=== PATIENT | female | born 1960 | race American Indian/Alaskan Native ===

== ENCOUNTER 2017-10-03 14:57 | Emergency (ER) | payer OTHER ==
[2017-10-03 15:38] LABS: Basophils # (Auto) 0.1 K/mm3 (0.0-0.1); Basophils % (Auto) 0.6 % (0.0-1.8); Eosinophils # (Auto) 0.2 K/mm3 (0.0-0.4); Eosinophils % (Auto) 2.1 % (0.0-4.3); Hematocrit 39.2 % (30.3-42.9); Hemoglobin 12.8 gm/dl (10.1-14.3); Lymphocytes # (Auto) 1.8 K/mm3 (1.2-5.4); Lymphocytes % (Auto) 18.1 % (13.4-35.0); Mean Corpuscular HGB Conc 33 % (30-34); Mean Corpuscular Hemoglobin 27 pg (28-32); Mean Corpuscular Volume 82 fl (79-97); Monocytes # (Auto) 0.7 K/mm3 (0.0-0.8); Monocytes % (Auto) 7.1 % (0.0-7.3); Platelet Count 368 K/mm3 (140-440); Red Cell Distribution Width 14.4 % (13.2-15.2)
--- NOTE | 2017-10-03 16:00 | XRay Report ---
FINAL REPORT PROCEDURE: XR CHEST ROUTINE 2V TECHNIQUE: PA and lateral chest radiographs were obtained. CPT 70335 HISTORY: Shortness of breath COMPARISON: No prior studies are available for comparison. FINDINGS: Heart: Normal. Mediastinum/Vessels: Normal. Lungs/Pleural space: Normal. Bony thorax: No acute osseous abnormality. Other: IMPRESSION: Normal examination.
[2017-10-03 16:30] LABS: BUN/Creatinine Ratio 18; Blood Urea Nitrogen 11 mg/dL (7-17); Calcium 9.3 mg/dL (8.4-10.2)
[2017-10-03] MEDS ORDERED: APRESOLINE IV ONE (22:28)
[2017-10-03 23:10] VITALS: BP 129/72
--- NOTE | 2017-10-03 23:24 | Emergency Department Report ---
ED General Adult HPI - General Chief complaint: High BP Stated complaint: BP HIGH Time Seen by Provider: 10/03/17 22:26 Source: patient Mode of arrival: Ambulatory Limitations: No Limitations - History of Present Illness Initial comments: 57 yo female who comes in today due to an elevated blood pressure. Her blood pressure on check in the ED was 205/110. She states that her blood pressure regimen was recently changed by her provider. Denies any chest pain, shortness of breath, nausea, vomiting, fever, or chills. -: This evening Radiation: non-radiation Severity scale (0 -10): 0 Consistency: now resolved Improves with: medication Worsens with: none Associated Symptoms: headaches Treatments Prior to Arrival: none - Related Data Allergies Allergy/AdvReac Type Severity Reaction Status Date / Time erythromycin base Allergy Itching Unverified 08/18/16 10:39 latex Allergy Itching Verified 10/03/17 15:09 pseudoephedrine HCl Allergy Itching Unverified 08/18/16 10:40 [From Actifed] tramadol Allergy Itching Unverified 08/18/16 10:39 triprolidine HCl Allergy Itching Unverified 08/18/16 10:40 [From Actifed] ED Review of Systems ROS: Stated complaint: BP HIGH Other details as noted in HPI Constitutional: denies: chills, fever Eyes: denies: eye pain, eye discharge, vision change ENT: denies: ear pain, throat pain Respiratory: denies: cough, shortness of breath, wheezing Cardiovascular: denies: chest pain, palpitations Endocrine: no symptoms reported Gastrointestinal: denies: abdominal pain, nausea, diarrhea Genitourinary: denies: urgency, dysuria, discharge Musculoskeletal: denies: back pain, joint swelling, arthralgia Skin: denies: rash, lesions Neurological: headache Psychiatric: denies: anxiety, depression Hematological/Lymphatic: other (bilateral lower extremity edema ) ED Past Medical Hx - Past Medical History Previous Medical History?: Yes Hx Hypertension: Yes Hx Diabetes: Yes Hx Asthma: Yes Additional medical history: Glaucoma - Surgical History Past Surgical History?: No Additional Surgical History: Right eye surgery - Social History Smoking Status: Former Smoker Substance Use Type: Non Opiate Pain, Prescribed, Other ED Physical Exam - General Limitations: No Limitations General appearance: alert, in no apparent distress - Head Head exam: Present: atraumatic, normocephalic - Eye Eye exam: Present: normal appearance - ENT ENT exam: Present: mucous membranes moist - Neck Neck exam: Present: normal inspection - Respiratory Respiratory exam: Present: normal lung sounds bilaterally. Absent: respiratory distress - Cardiovascular Cardiovascular Exam: Present: regular rate, normal rhythm. Absent: systolic murmur, diastolic murmur, rubs, gallop - Extremities Exam Extremities exam: Present: pedal edema (bilaterally ) - Back Exam Back exam: Present: normal inspection - Neurological Exam Neurological exam: Present: alert, oriented X3 - Psychiatric Psychiatric exam: Present: normal affect, normal mood - Skin Skin exam: Present: warm, dry, intact, normal color. Absent: rash ED Course Vital Signs 10/03/17 10/03/17 10/03/17 15:04 17:26 17:30 Temperature 98.6 F Pulse Rate 97 H 72 78 Respiratory 18 14 11 L Rate Blood Pressure 195/103 160/95 O2 Sat by Pulse 97 86 Oximetry 10/03/17 10/03/17 10/03/17 17:45 18:00 18:16 Temperature Pulse Rate 73 76 91 H Respiratory 19 19 16 Rate Blood Pressure 156/97 156/97 196/110 O2 Sat by Pulse 100 Oximetry 10/03/17 10/03/17 10/03/17 18:32 20:18 21:25 Temperature 98.8 F Pulse Rate 92 H 90 Respiratory 16 13 Rate Blood Pressure 151/101 204/109 151/101 O2 Sat by Pulse 88 99 100 Oximetry 10/03/17 10/03/17 10/03/17 21:30 21:38 21:46 Temperature Pulse Rate 88 84 Respiratory 15 20 13 Rate Blood Pressure 205/110 205/110 O2 Sat by Pulse 99 100 100 Oximetry 10/03/17 10/03/17 10/03/17 21:48 22:00 22:16 Temperature Pulse Rate 90 88 91 H Respiratory 15 13 Rate Blood Pressure 182/97 205/110 O2 Sat by Pulse 100 100 Oximetry 10/03/17 10/03/17 10/03/17 22:30 22:46 23:00 Temperature Pulse Rate 88 78 87 Respiratory 13 17 22 Rate Blood Pressure 166/94 182/97 129/72 O2 Sat by Pulse 97 100 100 Oximetry - Reevaluation(s) Reevaluation #1: 01/06/18 23:24 Blood pressure improved with hydralazine. Blood pressure 129/72. Home today. She was instructed to follow up with her provider to have her blood pressure regimen modified. ED Medical Decision Making - Lab Data Result diagrams: 10/03/17 15:22 10/03/17 15:22 - EKG Data -: EKG Interpreted by Me EKG shows normal: sinus rhythm Rate: normal - EKG Data When compared to previous EKG there are: previous EKG unavailable Interpretation: no acute changes, nonspecific ST-T wave stalin - Radiology Data Radiology results: report reviewed (chest radiograph unremarkable ) No acute pathology. - Medical Decision Making uncontrolled hypertension medication non-compliance - Differential Diagnosis uncontrolled hypertension, medication non-compliance Critical care attestation.: If time is entered above; I have spent that time in minutes in the direct care of this critically ill patient, excluding procedure time. ED Disposition Clinical Impression: Uncontrolled hypertension, Noncompliance with medication regimen Disposition: TO HOME OR SELFCARE Is pt being admited?: No Does the pt Need Aspirin: No Condition: Stable Instructions: Hypertension (ED) Additional Instructions: Please follow up with your provider on Thursday to have your blood pressure medications adjusted. Return to the ED for worsening headache, chest pain, neck , jaw, or arm pain in addition to shortness of breath. Referrals: GUZMAN ANDRE MD [Primary Care Provider] - 3-5 Days Time of Disposition: 23:31
== END 2017-10-04 01:25 | disposition home or self-care (01) ==
LOC: ED 14:57
DX: I10 Essential (primary) hypertension (principal); E11.9 Type 2 diabetes mellitus without complications; J45.909 Unspecified asthma, uncomplicated; H40.9 Unspecified glaucoma; Z91.14 Patient's other noncompliance with medication regimen; Z88.1 Allergy status to other antibiotic agents; Z88.6 Allergy status to analgesic agent; Z88.8 Allergy status to other drugs, medicaments and biological substances; Z91.040 Latex allergy status; Z87.891 Personal history of nicotine dependence
CPT/HCPCS: 36415; 71046; 80048; 84484; 85025; 93005; 93010; 96374; 99284; J0360

== ENCOUNTER 2018-10-02 14:13 | Inpatient (IN) | payer MEDICARE, OTHER ==
[2018-10-02 15:48] LABS: Hematocrit 38.3 % (30.3-42.9); Hemoglobin 12.5 gm/dl (10.1-14.3); Mean Corpuscular HGB Conc 33 % (30-34); Mean Corpuscular Volume 84 fl (79-97); Platelet Count 401 K/mm3 (140-440); Red Blood Count 4.55 M/mm3 (3.65-5.03)
[2018-10-02 15:50] LABS: Lymphocytes % (Auto) 16.1 % (13.4-35.0); Monocytes % (Auto) 6.8 % (0.0-7.3)
[2018-10-02 15:51] LABS: Basophils % (Auto) 0.7 % (0.0-1.8); Eosinophils % (Auto) 0.5 % (0.0-4.3); Lymphocytes # (Auto) 2.1 K/mm3 (1.2-5.4); Monocytes # (Auto) 0.9 K/mm3 (0.0-0.8)
[2018-10-02 15:52] LABS: Alanine Aminotransferase 18 units/L (7-56); Albumin 4.1 g/dL (3.9-5); BUN/Creatinine Ratio 26; Basophils # (Auto) 0.1 K/mm3 (0.0-0.1); Blood Urea Nitrogen 21 mg/dL (7-17); Calcium 10.2 mg/dL (8.4-10.2); Eosinophils # (Auto) 0.1 K/mm3 (0.0-0.4); Hemolysis Index 77; INR 1.04 (0.87-1.13); Partial Thromboplastin Time 20.5 Sec. (24.2-36.6)
[2018-10-02 15:55] LABS: Bilirubin,Urine NEG (Negative); Blood,Urine SM (Negative); Color,Urine Yellow (Yellow); Mucus,Urine FEW /HPF; Urobilinogen,Urine < 2.0 mg/dL (<2.0)
--- NOTE | 2018-10-02 15:57 | Cat Scan Report ---
FINAL REPORT EXAM: CT HEAD/BRAIN WO CON HISTORY: Altered Mental Status TECHNIQUE: CT of the Head without IV contrast. PRIORS: None currently available. FINDINGS: 7.2 mm ill-defined area decreased attenuation in the anterior left thalamus suggests acute/subacute i schemia. There is no hemorrhage. There is no midline shift. There is no hydrocephalus. There is no mass. Age appropriate weathers-white matter attenuation is noted. There is no calvarial fracture. The temporal bones demonstrate aerated mastoid air cells. The middle ears appear unremarkable. Paranasal sinuses are unremarkable. Globes are intact. IMPRESSION: Acute/subacute focal ischemia in the left thalamus. Correlation with MRI may be helpful if clinically indicated.
[2018-10-02 16:00] LABS: Protein,Urine >500 mg/dL (Negative)
--- NOTE | 2018-10-02 16:29 | XRay Report ---
FINAL REPORT EXAM: XR CHEST 1V AP HISTORY: Altered Mental Status TECHNIQUE: Frontal chest x-ray. PRIORS: Chest x-ray October 03, 2017. FINDINGS: Cardiac silhouette is within normal limits. There is no effusion. There is no pneumothorax. There is no consolidation. There are no suspicious osseous lesions. IMPRESSION: No acute cardiopulmonary findings.
[2018-10-02] MEDS ORDERED: HumuLIN R IV ONE (16:35)
[2018-10-02] MEDS ORDERED: NACL 0.9% 1000 ML 1,000 ML IV ONE (16:35)
[2018-10-02] MEDS ORDERED: ASPIRIN PO ONE (16:53)
[2018-10-02] MEDS ORDERED: NORMODYNE IV ONE (16:56)
--- NOTE | 2018-10-02 17:41 | Emergency Department Report ---
ED Altered Mental Status HPI - General Chief Complaint: High BP Stated Complaint: AMS Time Seen by Provider: 10/02/18 16:33 Source: family, EMS Mode of arrival: Stretcher Limitations: No Limitations - History of Present Illness Initial Comments: 58-year-old female past medical history diabetes (on insulin), hypertension, asthma, and glaucoma with recent right eye surgery presents to the hospital with complains of alteration in mental status since yesterday. Family does not think that patient has taken her insulin doses last night or today. She typically is able to medicate herself however, they suspect that she has not done so due to her alteration in mental status. Blood pressure is also elevated upon arrival and they're unsure if patient has been taking her blood pressure medication. Patient is alert and oriented to self only. She does not know why she is here and answers "I don't know" all other orientation questions. She follows co mmands and denies pain. It is unable to give any history of present illness therefore it was obtained primarily from her daughter and at the bedside. She is supposed to take Levemir 90 units daily at bedtime and Novolin R insulin twice a day at unknown dose. Family reports the patient has some mild URI symptoms that are improving. No fever. PMD: Dr. Sinan Coles - Related Data Home Medications Medication Instructions Recorded Confirmed Last Taken Insulin Detemir [Levemir VIAL] 90 unit SQ QHS 10/02/18 10/02/18 Unknown Allergies Allergy/AdvReac Type Severity Reaction Status Date / Time latex Allergy Severe Itching Verified 10/02/18 21:23 ED Review of Systems ROS: Stated complaint: AMS Other details as noted in HPI Comment: All other systems reviewed and negative ED Past Medical Hx - Past Medical History Hx Hypertension: Yes Hx Diabetes: Yes Hx Asthma: Yes Additional medical history: Glaucoma - Surgical History Additional Surgical History: Right eye surgery - Social History Smoking Status: Never Smoker Substance Use Type: None - Medications Home Medications: Home Medications Medication Instructions Recorded Confirmed Last Taken Type Insulin Detemir [Levemir VIAL] 90 unit SQ QHS 10/02/18 10/02/18 Unknown History ED Physical Exam - General Limitations: No Limitations - Other Other exam information: General: No limitations, patient is alert in no acute distress Head exam: Atraumatic, normocephalic Eyes exam: Normal appearance, pupils equal reactive to light, extraocular movements intact ENT: Moist mucous membrane Neck exam: Normal inspection, full range of motion, no meningismus nontender Respiratory exam: Clear to auscultation bilateral, no wheezes, rales, crackles Cardiovascular: Mild tachycardic regular rhythm Abdomen: Soft, nondistended, and nontender, with normal bowel sounds, no rebound, or guarding Extremity: Full range of motion normal inspection no deformity Back: Normal Inspection, full range of motion, no tenderness Neurologic: Alert, oriented x1, cranial nerves intact, no motor or sensory def icit Psychiatric: normal affect, normal mood Skin: Warm, dry, intact - Assessment Assessment Interval: Baseline - Level of Consciousness 1a. Level of Consciousness: alert/keenly responsive - LOC Questions 1b. LOC Questions: answers no questions correctly - LOC Command 1c. LOC Commands: performs tasks correctly - Best Gaze 2. Best Gaze: normal - Visual 3. Visual: no visual loss - Facial Palsy 4. Facial Palsy: normal symmetrical movement - Motor Arm 5b. Motor Arm Right: no drift 5a. Motor Arm Left: no drift - Motor Leg 6b. Motor Leg Right: no drift 6a. Motor Leg Left: no drift - Limb Ataxia 7. Limb Ataxia: absent - Sensory 8. Sensory: normal - Best Language 9. Best Language: no aphasia - Dysarthria 10. Dysarthria: normal - Extinction and Inattention 11. Extinction/Inattention: no abnormality - Scoring Total Score: 2 Stroke Severity: Minor Stroke ED Course Vital Signs 10/02/18 10/02/18 10/02/18 14:36 14:46 16:10 Temperature 97.8 F Pulse Rate 108 H Respiratory 12 Rate Blood Pressure 215/111 197/104 O2 Sat by Pulse 99 99 Oximetry 10/02/18 10/02/18 10/02/18 16:30 17:01 17:16 Temperature Pulse Rate 104 H Respiratory 11 L Rate Blood Pressure 189/96 223/133 202/117 O2 Sat by Pulse 99 Oximetry 10/02/18 10/02/18 10/02/18 17:30 17:46 18:00 Temperature Pulse Rate 98 H 99 H Respiratory 17 17 Rate Blood Pressure 210/115 205/105 197/97 O2 Sat by Pulse 97 98 Oximetry 10/02/18 10/02/18 10/02/18 18:16 18:30 18:46 Temperature Pulse Rate 102 H 98 H 105 H Respiratory 19 12 18 Rate Blood Pressure 197/97 159/69 159/69 O2 Sat by Pulse 99 98 96 Oximetry 10/02/18 10/02/18 10/02/18 19:00 19:56 20:00 Temperature Pulse Rate 105 H 104 H 107 H Respiratory 16 16 10 L Rate Blood Pressure 192/98 190/95 190/95 O2 Sat by Pulse 98 Oximetry 10/02/18 10/02/18 10/02/18 20:16 20:30 20:46 Temperature Pulse Rate 108 H 106 H 106 H Respiratory 21 18 20 Rate Blood Pressure 190/95 192/98 192/98 O2 Sat by Pulse Oximetry 10/02/18 10/02/18 10/02/18 21:00 21:16 21:30 Temperature Pulse Rate 106 H 108 H 110 H Respiratory 17 12 22 Rate Blood Pressure 192/98 192/98 192/98 O2 Sat by Pulse Oximetry 10/02/18 10/02/18 10/02/18 21:45 21:49 22:00 Temperature Pulse Rate 115 H 112 H Respiratory 20 14 Rate Blood Pressure 195/104 195/104 195/92 O2 Sat by Pulse Oximetry 10/02/18 10/02/18 10/02/18 22:16 22:30 22:46 Temperature Pulse Rate 111 H 110 H 112 H Respiratory 16 17 25 H Rate Blood Pressure 195/92 197/109 195/92 O2 Sat by Pulse Oximetry 10/02/18 10/02/18 23:00 23:10 Temperature Pulse Rate 110 H 107 H Respiratory 20 18 Rate Blood Pressure 199/100 168/103 O2 Sat by Pulse Oximetry - Lab Data Result diagrams: 10/03/18 09:40 10/03/18 09:40 Lab Results 10/02/18 10/02/18 10/02/18 Range/Units 14:46 15:22 15:22 WBC 12.9 H (4.5-11.0) K/mm3 RBC 4.55 (3.65-5.03) M/mm3 Hgb 12.5 (10.1-14.3) gm/dl Hct 38.3 (30.3-42.9) % MCV 84 (79-97) fl MCH 27 L (28-32) pg MCHC 33 (30-34) % RDW 15.0 (13.2-15.2) % Plt Count 401 (140-440) K/mm3 Lymph % (Auto) 16.1 (13.4-35.0) % Band[place] % (Auto) 6.8 (0.0-7.3) % Eos % (Auto) 0.5 (0.0-4.3) % Baso % (Auto) 0.7 (0.0-1.8) % Lymph # 2.1 (1.2-5.4) K/mm3 Bandera # 0.9 H (0.0-0.8) K/mm3 Eos # 0.1 (0.0-0.4) K/mm3 Baso # 0.1 (0.0-0.1) K/mm3 Seg Neutrophils % 75.9 H (40.0-70.0) % Seg Neutrophils # 9.8 H (1.8-7.7) K/mm3 PT (12.2-14.9) Sec. INR (0.87-1.13) APTT (24.2-36.6) Sec. VBG pH (7.320-7.420) Sodium 135 L (137-145) mmol/L Potassium 4.4 (3.6-5.0) mmol/L Chloride 91.5 L (98-107) mmol/L Carbon Dioxide 19 L (22-30) mmol/L Anion Gap 29 mmol/L BUN 21 H (7-17) mg/dL Creatinine 0.8 (0.7-1.2) mg/dL Estimated GFR > 60 ml/min BUN/Creatinine Ratio 26 % Glucose 440 H (65-100) mg/dL POC Glucose 382 H (70-105) Calcium 10.2 (8.4-10.2) mg/dL Total Bilirubin 0.40 (0.1-1.2) mg/dL AST 18 (5-40) units/L ALT 18 (7-56) units/L Alkaline Phosphatase 88 (35-129) units/L Troponin T (0.00-0.029) ng/mL Total Protein 7.4 (6.3-8.2) g/dL Albumin 4.1 (3.9-5) g/dL Albumin/Globulin Ratio 1.2 % 10/02/18 10/02/18 10/02/18 Range/Units 15:22 15:22 17:04 WBC (4.5-11.0) K/mm3 RBC (3.65-5.03) M/mm3 Hgb (10.1-14.3) gm/dl Hct (30.3-42.9) % MCV (79-97) fl MCH (28-32) pg MCHC (30-34) % RDW (13.2-15.2) % Plt Count (140-440) K/mm3 Lymph % (Auto) (13.4-35.0) % Band[place] % (Auto) (0.0-7.3) % Eos % (Auto) (0.0-4.3) % Baso % (Auto) (0.0-1.8) % Lymph # (1.2-5.4) K/mm3 Band[place] # (0.0-0.8) K/mm3 Eos # (0.0-0.4) K/mm3 Baso # (0.0-0.1) K/mm3 Seg Neutrophils % (40.0-70.0) % Seg Neutrophils # (1.8-7.7) K/mm3 PT 14.0 (12.2-14.9) Sec. INR 1.04 (0.87-1.13) APTT 20.5 L (24.2-36.6) Sec. VBG pH 7.468 H (7.320-7.420) Sodium (137-145) mmol/L Potassium (3.6-5.0) mmol/L Chloride (98-107) mmol/L Carbon Dioxide (22-30) mmol/L Anion Gap mmol/L BUN (7-17) mg/dL Creatinine (0.7-1.2) mg/dL Estimated GFR ml/min BUN/Creatinine Ratio % Glucose (65-100) mg/dL POC Glucose (70-105) Calcium (8.4-10.2) mg/dL Total Bilirubin (0.1-1.2) mg/dL AST (5-40) units/L ALT (7-56) units/L Alkaline Phosphatase (35-129) units/L Troponin T < 0.010 (0.00-0.029) ng/mL Total Protein (6.3-8.2) g/dL Albumin (3.9-5) g/dL Albumin/Globulin Ratio % 10/02/18 Range/Units 18:10 WBC (4.5-11.0) K/mm3 RBC (3.65-5.03) M/mm3 Hgb (10.1-14.3) gm/dl Hct (30.3-42.9) % MCV (79-97) fl MCH (28-32) pg MCHC (30-34) % RDW (13.2-15.2) % Plt Count (140-440) K/mm3 Lymph % (Auto) (13.4-35.0) % Band[place] % (Auto) (0.0-7.3) % Eos % (Auto) (0.0-4.3) % Baso % (Auto) (0.0-1.8) % Lymph # (1.2-5.4) K/mm3 Band[place] # (0.0-0.8) K/mm3 Eos # (0.0-0.4) K/mm3 Baso # (0.0-0.1) K/mm3 Seg Neutrophils % (40.0-70.0) % Seg Neutrophils # (1.8-7.7) K/mm3 PT (12.2-14.9) Sec. INR (0.87-1.13) APTT (24.2-36.6) Sec. VBG pH (7.320-7.420) Sodium (137-145) mmol/L Potassium (3.6-5.0) mmol/L Chloride (98-107) mmol/L Carbon Dioxide (22-30) mmol/L Anion Gap mmol/L BUN (7-17) mg/dL Creatinine (0.7-1.2) mg/dL Estimated GFR ml/min BUN/Creatinine Ratio % Glucose (65-100) mg/dL POC Glucose 389 H (70-105) Calcium (8.4-10.2) mg/dL Total Bilirubin (0.1-1.2) mg/dL AST (5-40) units/L ALT (7-56) units/L Alkaline Phosphatase (35-129) units/L Troponin T (0.00-0.029) ng/mL Total Protein (6.3-8.2) g/dL Albumin (3.9-5) g/dL Albumin/Globulin Ratio % - Radiology Data Radiology results: report reviewed FINAL REPORT EXAM: XR CHEST 1V AP HISTORY: Altered Mental Status TECHNIQUE: Frontal chest x-ray. PRIORS: Chest x-ray October 03, 2017. FINDINGS: Cardiac silhouette is within normal limits. There is no effusion. There is no pneumothorax. There is no consolidation. There are no suspicious osseous lesions. IMPRESSION: No acute cardiopulmonary findings. FINAL REPORT EXAM: CT HEAD/BRAIN WO CON HISTORY: Altered Mental Status TECHNIQUE: CT of the Head without IV contrast. PRIORS: None currently available. FINDINGS: 7.2 mm ill-defined area decreased attenuation in the anterior left thalamus suggests acute/subacute ischemia. There is no hemorrhage. There is no midline shift. There is no hydrocephalus. There is no mass. Age appropriate weathers-white matter attenuation is noted. There is no calvarial fracture. The temporal bones demonstrate aerated mastoid air cells. The middle ears appear unremarkable. Paranasal sinuses are unremarkable. Globes are intact. IMPRESSION: Acute/subacute focal ischemia in the left thalamus. Correlation with MRI may be helpful if clinically indicated. - Medical Decision Making Patient appears to have mild symptoms of DKA with associated encephalopathy. CT shows acute versus subacute infarct. Aspirin provided pending swallowing screening clearance. Insulin, normal saline, labetalol bolus initiated. Hospitalist made aware of pending admission at 5:35 PM - Differential Diagnosis ICH, TIA, CVA, encephalopathy, DKA, infection Critical Care Time: No Critical care attestation.: If time is entered above; I have spent that time in minutes in the direct care of this critically ill patient, excluding procedure time. ED Disposition Clinical Impression: Mental status alteration, DKA (diabetic ketoacidoses), Noncompliance with medication regimen, Uncontrolled hypertension, Lacunar infarct, acute Disposition: DC-09 OP ADMIT IP TO THIS HOSP Is pt being admited?: Yes Condition: Stable Time of Disposition: 17:45 (Dr Madsen/hosp)
--- NOTE | 2018-10-02 19:06 | History and Physical Report ---
History of Present Illness Chief complaint: Confused History of present illness: 58 YO Female with DM, HTN, Obesity, Asthma presents to ED for evaluation. Pt is confused and unable to provide detailed history. Pt history provided by daughter who is at bedside during exam and interview. As per daughter, the patient was in her usual state of health at bedtime around 2000 hrs. Pt awoke from sleep this morning and was found to be confused and unable to conduct activities of daily living which is a departure for her normal state of health. EMS notified, and upon arrival the patient was found to be confused and with neurologic deficit. Code stroke was called and patient was transported to [facility] for further care and evaluation. Pt seen and evaluated in ED and found to have symptoms consistent with CVA, Sepsis, Acidosis, and Encephalopathy. Pt admitted to telemetry and initiated on CVA protocol, as well as Sepsis protocols. Past History Past Medical History: diabetes, hypertension, other (Obesity, Asthma) Past Surgical History: Other (Right Eye surgery) Social history: . denies: smoking, alcohol abuse, prescription drug abuse Family history: diabetes, hypertension Medications and Allergies Allergies Allergy/AdvReac Type Severity Reaction Status Date / Time erythromycin base Allergy Itching Unverified 08/18/16 10:39 latex Allergy Itching Verified 10/03/17 15:09 pseudoephedrine HCl Allergy Itching Unverified 08/18/16 10:40 [From Actifed] tramadol Allergy Itching Unverified 08/18/16 10:39 triprolidine HCl Allergy Itching Unverified 08/18/16 10:40 [From Actifed] Home Medications Medication Instructions Recorded Confirmed Last Taken Type Insulin Detemir [Levemir VIAL] 90 unit SQ QHS 10/02/18 10/02/18 Unknown History Review of Systems ROS unobtainable: due to mental status Exam - Constitutional Vitals: Temp Pulse Resp BP Pulse Ox 97.8 F 98 H 17 205/105 97 10/02/18 14:46 10/02/18 17:46 10/02/18 17:46 10/02/18 17:46 10/02/18 17:46 General appearance: Present: mild distress, obese - EENT Eyes: Present: PERRL ENT: hearing intact, clear oral mucosa - Neck Neck: Present: supple, normal ROM - Respiratory Respiratory effort: normal Respiratory: bilateral: CTA - Cardiovascular Heart Sounds: Present: S1 & S2. Absent: rub, click - Extremities Extremities: pulses symmetrical, No edema Peripheral Pulses: within normal limits - Abdominal General gastrointestinal: Present: soft, non-tender, non-distended, normal bowel sounds Female genitourinary: Present: normal - Integumentary Integumentary: Present: clear, warm, dry - Musculoskeletal Musculoskeletal: generalized weakness - Psychiatric Psychiatric: no appropriate mood/affect, no intact judgment & insight, no memory intact - Neurologic Neurologic: focal deficits, no gait normal Results - Labs CBC & Chem 7: 10/02/18 15:22 10/02/18 15:22 Labs: Abnormal lab results 10/02/18 10/02/18 10/02/18 Range/Units 14:46 15:22 15:22 WBC 12.9 H (4.5-11.0) K/mm3 MCH 27 L (28-32) pg Cataño # 0.9 H (0.0-0.8) K/mm3 Seg Neutrophils % 75.9 H (40.0-70.0) % Seg Neutrophils # 9.8 H (1.8-7.7) K/mm3 APTT (24.2-36.6) Sec. VBG pH (7.320-7.420) Sodium 135 L (137-145) mmol/L Chloride 91.5 L (98-107) mmol/L Carbon Dioxide 19 L (22-30) mmol/L BUN 21 H (7-17) mg/dL Glucose 440 H (65-100) mg/dL POC Glucose 382 H (70-105) 10/02/18 10/02/18 10/02/18 Range/Units 15:22 17:04 18:10 WBC (4.5-11.0) K/mm3 MCH (28-32) pg Cataño # (0.0-0.8) K/mm3 Seg Neutrophils % (40.0-70.0) % Seg Neutrophils # (1.8-7.7) K/mm3 APTT 20.5 L (24.2-36.6) Sec. VBG pH 7.468 H (7.320-7.420) Sodium (137-145) mmol/L Chloride (98-107) mmol/L Carbon Dioxide (22-30) mmol/L BUN (7-17) mg/dL Glucose (65-100) mg/dL POC Glucose 389 H (70-105) Assessment and Plan - Patient Problems (1) CVA (cerebral vascular accident) Current Visit: Yes Status: Acute Qualifiers: Precerebral and cerebral artery: posterior cerebral artery Plan to address problem: Admit to telemetry: CT head, MRI Brain, MRA Brain, Echo, EEG, Seizure precautions, neuro checks, Carotid Doppler, PT/OT/Speech Therapy, Antiplatelet therapy, lipipd panel, statin therapy (2) Sepsis Current Visit: Yes Status: Acute Qualifiers: Sepsis type: sepsis due to unspecified organism Qualified Code(s): A41.9 - Sepsis, unspecified organism Plan to address problem: Sepsis protocol: IV antibiotic therapy, IVF resuscitation as tolerated, CBC, CMP , Chest x ray, urinalysis, blood cultures, serial lactic acid level (3) Acidosis Current Visit: Yes Status: Acute Plan to address problem: IVF resuscitation therapy, repeat bmp (4) Encephalopathy Current Visit: Yes Status: Acute Plan to address problem: CT Head, Neuro checks, seizure precautions, (5) Diabetes Current Visit: Yes Status: Acute Plan to address problem: ADA diet, insulin, accu check (6) DVT prophylaxis Current Visit: Yes Status: Acute Plan to address problem: SCD to BLE while in bed.
[2018-10-02] MEDS ORDERED: D50W (25GM) Syringe IV PRN (19:08)
[2018-10-02] MEDS ORDERED: DULCOLAX PR PRN (19:09)
[2018-10-02] MEDS ORDERED: MILK OF MAGNESIA PO PRN (19:09)
[2018-10-02] MEDS ORDERED: REGLAN PO PRN (19:09)
[2018-10-02] MEDS ORDERED: TYLENOL PO PRN (19:09)
[2018-10-02] MEDS ORDERED: ZOFRAN IV PRN (19:09)
[2018-10-02] MEDS ORDERED: PHENERGAN PR PRN (19:09)
[2018-10-02] MEDS ORDERED: NACL 0.9% 1000 ML IV ONE (20:00)
[2018-10-02] MEDS ORDERED: LEVAQUIN 750MG/150ML 750 MG/150 ML BAG IV ONE (20:47)
[2018-10-02] MEDS ORDERED: NACL 0.9% 1000 ML 1,000 ML ONE (20:47)
[2018-10-02] MEDS: LEVAQUIN 750MG/150ML 750 MG/150 ML BAG IV SCH (21:24)
[2018-10-02] MEDS ORDERED: APRESOLINE ONE (21:44)
[2018-10-02] MEDS: APRESOLINE IV PRN (21:49)
[2018-10-03] MEDS: HumaLOG SUB-Q SCH ×5 (00:57→23:39)
[2018-10-03] MEDS ORDERED: NORVASC ONE (01:04)
[2018-10-03] MEDS: NORVASC PO SCH ×2 (01:04→10:33)
[2018-10-03 06:33] LABS: Chol/HDL Ratio 5.8 %
[2018-10-03 10:21] LABS: Basophils % (Auto) 0.3 % (0.0-1.8); Eosinophils # (Auto) 0.1 K/mm3 (0.0-0.4); Eosinophils % (Auto) 0.5 % (0.0-4.3); Hematocrit 35.6 % (30.3-42.9); Hemoglobin 11.8 gm/dl (10.1-14.3); Lymphocytes % (Auto) 18.8 % (13.4-35.0); Mean Corpuscular HGB Conc 33 % (30-34); Mean Corpuscular Volume 84 fl (79-97); Monocytes # (Auto) 0.9 K/mm3 (0.0-0.8); Monocytes % (Auto) 8.7 % (0.0-7.3); Platelet Count 381 K/mm3 (140-440); Red Blood Count 4.26 M/mm3 (3.65-5.03); Red Cell Distribution Width 15.3 % (13.2-15.2)
[2018-10-03 10:39] LABS: BUN/Creatinine Ratio 20; Blood Urea Nitrogen 20 mg/dL (7-17); Calcium 9.5 mg/dL (8.4-10.2); Hemolysis Index 0
--- NOTE | 2018-10-03 11:14 | Progress Note ---
Subjective Date of service: 10/03/18 Interval history: spoke to the family and went over recent hx the patient has hx of recent flu like illness and had been on prednisone she then got very confused and lost her memory the CT of the ehad shows mild atrophy of the brain no evidence of acute stroke went over the hx and she is better at thepresent time and is able to eat and properly ID family members suspect diabetic encepha. causing this but await the MRI and get EEG Objective - Vital Sign Vital Signs - 12hr 10/03/18 10/03/18 10/03/18 00:23 01:04 03:52 Temperature 98.0 F 98.0 F Pulse Rate 105 H 105 H 115 H Respiratory 18 20 Rate Blood Pressure 214/106 214/106 Blood Pressure [Right] O2 Sat by Pulse 98 99 Oximetry 10/03/18 10/03/18 10/03/18 04:35 07:33 10:33 Temperature 97.8 F Pulse Rate 115 H 115 H Respiratory 18 Rate Blood Pressure 132/66 132/66 Blood Pressure 149/72 [Right] O2 Sat by Pulse 99 Oximetry - Laboratory Findings CBC and BMP: 10/03/18 09:40 10/03/18 09:40 Abnormal Lab Findings: Abnormal Labs 10/02/18 10/02/18 10/02/18 14:46 15:22 15:22 WBC 12.9 H MCH 27 L RDW Williamson % (Auto) Williamson # 0.9 H Seg Neutrophils % 75.9 H Seg Neutrophils # 9.8 H APTT VBG pH Sodium 135 L Chloride 91.5 L Carbon Dioxide 19 L BUN 21 H Glucose 440 H POC Glucose 382 H Hemoglobin A1c Triglycerides Cholesterol LDL Cholesterol Direct HDL Cholesterol 10/02/18 10/02/18 10/02/18 15:22 17:04 18:10 WBC MCH RDW Williamson % (Auto) Williamson # Seg Neutrophils % Seg Neutrophils # APTT 20.5 L VBG pH 7.468 H Sodium Chloride Carbon Dioxide BUN Glucose POC Glucose 389 H Hemoglobin A1c Triglycerides Cholesterol LDL Cholesterol Direct HDL Cholesterol 10/02/18 10/03/18 10/03/18 19:13 00:14 05:52 WBC MCH RDW Williamson % (Auto) Williamson # Seg Neutrophils % Seg Neutrophils # APTT VBG pH Sodium Chloride Carbon Dioxide BUN Glucose POC Glucose 367 H Hemoglobin A1c 14.6 H Triglycerides 302 H Cholesterol 209 H LDL Cholesterol Direct 142 H HDL Cholesterol 36 L 10/03/18 10/03/18 10/03/18 06:33 09:40 09:40 WBC MCH RDW 15.3 H Williamson % (Auto) 8.7 H Williamson # 0.9 H Seg Neutrophils % 71.7 H Seg Neutrophils # APTT VBG pH Sodium Chloride 97.7 L Carbon Dioxide BUN 20 H Glucose 324 H POC Glucose 282 H Hemoglobin A1c Triglycerides Cholesterol LDL Cholesterol Direct HDL Cholesterol
[2018-10-03] MEDS: APRESOLINE IV PRN (12:53)
--- NOTE | 2018-10-03 17:18 | Progress Note ---
Assessment and Plan Assessment and plan: 58 YO Female with DM, HTN, Obesity, Asthma presents to ED for evaluation. Pt is confused and unable to provide detailed history. Pt history provided by daughter who is at bedside during exam and interview. As per daughter, the patient was in her usual state of health at bedtime around 2000 hrs. Pt awoke from sleep this morning and was found to be confused and unable to conduct activities of daily living which is a departure for her normal state of health. EMS notified, and upon arrival the patient was found to be confused and with neurologic deficit. Code stroke was called and patient was transported to [facility] for further care and evaluation. Pt seen and evaluated in ED and found to have symptoms consistent with CVA, Sepsis, Acidosis, and Encephalopathy. Pt admitted to telemetry and initiated on CVA protocol, as well as Sepsis protocols. CVA - CT showed acute/subacute ischemia on the left thalamus - MRI,/MRA and echo is pending - Patient is on statin and aspirin - PTOT - Neurology consult Diabetes mellitus with hyperglycemia - Hemoglobin A1c is 14.6 - Patient is on sliding scale insulin, put him on 70 /30 20 units twice a day, we'll monitor Accu-Chek and adjust as needed, patient was on 90 units of Levemir daily at bedtime at home, I doubt she was complaint with medications SIRS - Leukocytosis with tachycardia - On empiric antibiotic, no source infection, once blood cultures back I will discontinue his IV antibiotic Hyperlipidemia - On statin Uncontrolled hypertension - I started on BP meds and will adjust as needed DVT prophylaxis - on heparin Disposition - Will continue inpatient care History Interval history: Patient was seen and evaluated this morning, patient has mild left upper extremity weakness. Hospitalist Physical - Physical exam Narrative exam: Not in cardiopulmonary distress. The patient is obese. Vital signs as documented. Head exam is unremarkable. No scleral icterus . Neck is without jugular venous distension, thyromegaly, or carotid bruits. Lungs are clear to auscultation. Cardiac exam reveals regular rate and Rhythm. Abdominal exam reveals normal bowel sounds, no masses, no organomegaly and no aortic enlargement. Extremities are nonedematous and both femoral and pedal pulses are normal. 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 Mild left upper extremity weakness. - Constitutional Vitals: Temp Pulse Resp BP Pulse Ox 99.0 F 115 H 20 167/94 99 10/03/18 16:36 10/03/18 16:36 10/03/18 16:36 10/03/18 16:36 10/03/18 16:36 General appearance: Present: mild distress, obese Results - Labs CBC & Chem 7: 10/03/18 09:40 10/03/18 09:40 Labs: Laboratory Last Values WBC 10.6 K/mm3 (4.5-11.0) 10/03/18 09:40 RBC 4.26 M/mm3 (3.65-5.03) 10/03/18 09:40 Hgb 11.8 gm/dl (10.1-14.3) 10/03/18 09:40 Hct 35.6 % (30.3-42.9) 10/03/18 09:40 MCV 84 fl (79-97) 10/03/18 09:40 MCH 28 pg (28-32) 10/03/18 09:40 MCHC 33 % (30-34) 10/03/18 09:40 RDW 15.3 % (13.2-15.2) H 10/03/18 09:40 Plt Count 381 K/mm3 (140-440) 10/03/18 09:40 Lymph % (Auto) 18.8 % (13.4-35.0) 10/03/18 09:40 [place] % (Auto) 8.7 % (0.0-7.3) H 10/03/18 09:40 Eos % (Auto) 0.5 % (0.0-4.3) 10/03/18 09:40 Baso % (Auto) 0.3 % (0.0-1.8) 10/03/18 09:40 Lymph # 2.0 K/mm3 (1.2-5.4) 10/03/18 09:40 [place] # 0.9 K/mm3 (0.0-0.8) H 10/03/18 09:40 Eos # 0.1 K/mm3 (0.0-0.4) 10/03/18 09:40 Baso # 0.0 K/mm3 (0.0-0.1) 10/03/18 09:40 Seg Neutrophils % 71.7 % (40.0-70.0) H 10/03/18 09:40 Seg Neutrophils # 7.6 K/mm3 (1.8-7.7) 10/03/18 09:40 PT 14.0 Sec. (12.2-14.9) 10/02/18 15:22 INR 1.04 (0.87-1.13) 10/02/18 15:22 APTT 20.5 Sec. (24.2-36.6) L 10/02/18 15:22 VBG pH 7.468 (7.320-7.420) H 10/02/18 17:04 Sodium 141 mmol/L (137-145) 10/03/18 09:40 Potassium 3.7 mmol/L (3.6-5.0) 10/03/18 09:40 Chloride 97.7 mmol/L (98-107) L 10/03/18 09:40 Carbon Dioxide 23 mmol/L (22-30) 10/03/18 09:40 Anion Gap 24 mmol/L 10/03/18 09:40 BUN 20 mg/dL (7-17) H 10/03/18 09:40 Creatinine 1.0 mg/dL (0.7-1.2) 10/03/18 09:40 Estimated GFR > 60 ml/min 10/03/18 09:40 BUN/Creatinine Ratio 20 % 10/03/18 09:40 Glucose 324 mg/dL (65-100) H 10/03/18 09:40 POC Glucose 414 (70-105) H 10/03/18 11:34 Hemoglobin A1c 14.6 % (4-6) H 10/02/18 19:13 Lactic Acid 1.60 mmol/L (0.7-2.0) 10/02/18 22:34 Calcium 9.5 mg/dL (8.4-10.2) 10/03/18 09:40 Total Bilirubin 0.40 mg/dL (0.1-1.2) 10/02/18 15:22 AST 18 units/L (5-40) 10/02/18 15:22 ALT 18 units/L (7-56) 10/02/18 15:22 Alkaline Phosphatase 88 units/L (35-129) 10/02/18 15:22 Troponin T < 0.010 ng/mL (0.00-0.029) 10/02/18 15:22 Total Protein 7.4 g/dL (6.3-8.2) 10/02/18 15:22 Albumin 4.1 g/dL (3.9-5) 10/02/18 15:22 Albumin/Globulin Ratio 1.2 % 10/02/18 15:22 Triglycerides 302 mg/dL (2-149) H 10/03/18 05:52 Cholesterol 209 mg/dL (50-199) H 10/03/18 05:52 LDL Cholesterol Direct 142 mg/dL (50-130) H 10/03/18 05:52 HDL Cholesterol 36 mg/dL (40-59) L 10/03/18 05:52 Cholesterol/HDL Ratio 5.80 % 10/03/18 05:52 Urine Color Yellow (Yellow) 10/02/18 Unknown Urine Turbidity Clear (Clear) 10/02/18 Unknown Urine pH 5.0 (5.0-7.0) 10/02/18 Unknown Ur Specific [place] 1.029 (1.003-1.030) 10/02/18 Unknown Urine Protein >500 mg/dL (Negative) 10/02/18 Unknown Urine Glucose (UA) >=500 mg/dL (Negative) 10/02/18 Unknown Urine Ketones 80 mg/dL (Negative) 10/02/18 Unknown Urine Blood Sm (Negative) 10/02/18 Unknown Urine Nitrite Neg (Negative) 10/02/18 Unknown Urine Bilirubin Neg (Negative) 10/02/18 Unknown Urine Urobilinogen < 2.0 mg/dL (<2.0) 10/02/18 Unknown Ur Leukocyte Esterase Neg (Negative) 10/02/18 Unknown Urine WBC (Auto) 2.0 /HPF (0.0-6.0) 10/02/18 Unknown Urine RBC (Auto) 5.0 /HPF (0.0-6.0) 10/02/18 Unknown Urine Mucus Few /HPF 10/02/18 Unknown
[2018-10-03] MEDS: APRESOLINE PO SCH ×2 (17:46→21:59)
[2018-10-03] MEDS: HEPARIN SUB-Q SCH (22:00)
[2018-10-03] MEDS: LEVAQUIN 750MG/150ML 750 MG/150 ML BAG IV SCH (22:24)
[2018-10-04] MEDS: APRESOLINE PO SCH ×3 (05:58→21:25)
[2018-10-04] MEDS: HumaLOG SUB-Q SCH ×4 (06:34→22:19)
[2018-10-04 08:13] LABS: Basophils % (Auto) 0.5 % (0.0-1.8); Eosinophils # (Auto) 0.2 K/mm3 (0.0-0.4); Eosinophils % (Auto) 1.8 % (0.0-4.3); Hematocrit 33.7 % (30.3-42.9); Hemoglobin 11.1 gm/dl (10.1-14.3); Lymphocytes # (Auto) 2.4 K/mm3 (1.2-5.4); Lymphocytes % (Auto) 27.2 % (13.4-35.0); Mean Corpuscular HGB Conc 33 % (30-34); Mean Corpuscular Volume 83 fl (79-97); Monocytes # (Auto) 0.7 K/mm3 (0.0-0.8); Monocytes % (Auto) 8.3 % (0.0-7.3); Platelet Count 357 K/mm3 (140-440); Red Blood Count 4.08 M/mm3 (3.65-5.03); Red Cell Distribution Width 15.2 % (13.2-15.2)
[2018-10-04 08:30] LABS: Calcium 9.1 mg/dL (8.4-10.2)
[2018-10-04] MEDS: HEPARIN SUB-Q SCH ×2 (09:47→21:25)
[2018-10-04] MEDS: BABY ASPIRIN PO SCH (09:54)
[2018-10-04] MEDS: NORVASC PO SCH (09:54)
--- NOTE | 2018-10-04 15:26 | Magnetic Resonance Report ---
MRI OF THE BRAIN WITHOUT CONTRAST: HISTORY: Stroke PROCEDURE: Multiplanar, multisequence MR imaging of the brain without IV contrast was performed. FINDINGS: A 1.2 cm focus of diffusion restriction is identified in the anterior left thalamus. There is no evidence for hemorrhage, mass or extra-axial fluid collection. No chronic infarct is identified. Mild nonspecific chronic white matter changes are identified. The midline structures are central. The basal cisterns are patent. Normal ventricular size. The orbital cavities and sella turcica demonstrate no abnormality. The visualized paranasal sinuses and mastoid air cells are well aerated. IMPRESSION: 1.2 cm subacute ischemic infarct in the left thalamus. Mild nonspecific chronic white matter changes.
--- NOTE | 2018-10-04 15:49 | Progress Note ---
Assessment and Plan Assessment and plan: 58 YO Female with DM, HTN, Obesity, Asthma presents to ED for evaluation. Pt is confused and unable to provide detailed history. Pt history provided by daughter who is at bedside during exam and interview. As per daughter, the patient was in her usual state of health at bedtime around 2000 hrs. Pt awoke from sleep this morning and was found to be confused and unable to conduct activities of daily living which is a departure for her normal state of health. EMS notified, and upon arrival the patient was found to be confused and with neurologic deficit. Code stroke was called and patient was transported to [facility] for further care and evaluation. Pt seen and evaluated in ED and found to have symptoms consistent with CVA, Sepsis, Acidosis, and Encephalopathy. Pt admitted to telemetry and initiated on CVA protocol, as well as Sepsis protocols. CVA - CT showed acute/subacute ischemia on the left thalamus - MRI,/MRA and echo is pending - Patient is on statin and aspirin - PTOT - Neurology consult Diabetes mellitus with hyperglycemia - Hemoglobin A1c is 14.6 - Patient is on sliding scale insulin, increased 70 /30 to 35 units twice a day, we'll monitor Accu-Chek and adjust as needed, patient was on 90 units of Levemir daily at bedtime at home, I doubt she was complaint with medications SIRS - Leukocytosis with tachycardia, resolved - DC emperic antibiotic Hyperlipidemia - On statin Uncontrolled hypertension - Continru current medication regimen DVT prophylaxis - on heparin Disposition - Will continue inpatient care - PT evaluation, patient may need subacute rehab History Interval history: Patient was seen and evaluated this morning, patient has mild left upper extremity weakness. Hospitalist Physical - Physical exam Narrative exam: Not in cardiopulmonary distress. The patient is obese. Vital signs as documented. Head exam is unremarkable. No scleral icterus . Neck is without jugular venous distension, thyromegaly, or carotid bruits. Lungs are clear to auscultation. Cardiac exam reveals regular rate and Rhythm. Abdominal exam reveals normal bowel sounds, no masses, no organomegaly and no aortic enlargement. Extremities are nonedematous and both femoral and pedal pulses are normal. 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 Mild left upper extremity weakness. - Constitutional Vitals: Temp Pulse Resp BP Pulse Ox 99.3 F 107 H 18 164/95 100 10/04/18 08:52 10/04/18 13:29 10/04/18 08:52 10/04/18 13:29 10/04/18 08:52 General appearance: Present: mild distress, obese Results - Labs CBC & Chem 7: 10/04/18 07:20 10/04/18 07:20 Labs: Laboratory Last Values WBC 8.9 K/mm3 (4.5-11.0) 10/04/18 07:20 RBC 4.08 M/mm3 (3.65-5.03) 10/04/18 07:20 Hgb 11.1 gm/dl (10.1-14.3) 10/04/18 07:20 Hct 33.7 % (30.3-42.9) 10/04/18 07:20 MCV 83 fl (79-97) 10/04/18 07:20 MCH 27 pg (28-32) L 10/04/18 07:20 MCHC 33 % (30-34) 10/04/18 07:20 RDW 15.2 % (13.2-15.2) 10/04/18 07:20 Plt Count 357 K/mm3 (140-440) 10/04/18 07:20 Lymph % (Auto) 27.2 % (13.4-35.0) 10/04/18 07:20 [place] % (Auto) 8.3 % (0.0-7.3) H 10/04/18 07:20 Eos % (Auto) 1.8 % (0.0-4.3) 10/04/18 07:20 Baso % (Auto) 0.5 % (0.0-1.8) 10/04/18 07:20 Lymph # 2.4 K/mm3 (1.2-5.4) 10/04/18 07:20 [place] # 0.7 K/mm3 (0.0-0.8) 10/04/18 07:20 Eos # 0.2 K/mm3 (0.0-0.4) 10/04/18 07:20 Baso # 0.0 K/mm3 (0.0-0.1) 10/04/18 07:20 Seg Neutrophils % 62.2 % (40.0-70.0) 10/04/18 07:20 Seg Neutrophils # 5.5 K/mm3 (1.8-7.7) 10/04/18 07:20 PT 14.0 Sec. (12.2-14.9) 10/02/18 15:22 INR 1.04 (0.87-1.13) 10/02/18 15:22 APTT 20.5 Sec. (24.2-36.6) L 10/02/18 15:22 VBG pH 7.468 (7.320-7.420) H 10/02/18 17:04 Sodium 137 mmol/L (137-145) 10/04/18 07:20 Potassium 3.4 mmol/L (3.6-5.0) L 10/04/18 07:20 Chloride 98.5 mmol/L (98-107) 10/04/18 07:20 Carbon Dioxide 21 mmol/L (22-30) L 10/04/18 07:20 Anion Gap 21 mmol/L 10/04/18 07:20 BUN 22 mg/dL (7-17) H 10/04/18 07:20 Creatinine 1.2 mg/dL (0.7-1.2) 10/04/18 07:20 Estimated GFR 56 ml/min 10/04/18 07:20 BUN/Creatinine Ratio 18 % 10/04/18 07:20 Glucose 352 mg/dL (65-100) H 10/04/18 07:20 POC Glucose 353 (70-105) H 10/04/18 05:54 Hemoglobin A1c 14.6 % (4-6) H 10/02/18 19:13 Lactic Acid 1.60 mmol/L (0.7-2.0) 10/02/18 22:34 Calcium 9.1 mg/dL (8.4-10.2) 10/04/18 07:20 Total Bilirubin 0.40 mg/dL (0.1-1.2) 10/02/18 15:22 AST 18 units/L (5-40) 10/02/18 15:22 ALT 18 units/L (7-56) 10/02/18 15:22 Alkaline Phosphatase 88 units/L (35-129) 10/02/18 15:22 Troponin T < 0.010 ng/mL (0.00-0.029) 10/02/18 15:22 Total Protein 7.4 g/dL (6.3-8.2) 10/02/18 15:22 Albumin 4.1 g/dL (3.9-5) 10/02/18 15:22 Albumin/Globulin Ratio 1.2 % 10/02/18 15:22 Triglycerides 302 mg/dL (2-149) H 10/03/18 05:52 Cholesterol 209 mg/dL (50-199) H 10/03/18 05:52 LDL Cholesterol Direct 142 mg/dL (50-130) H 10/03/18 05:52 HDL Cholesterol 36 mg/dL (40-59) L 10/03/18 05:52 Cholesterol/HDL Ratio 5.80 % 10/03/18 05:52 Urine Color Yellow (Yellow) 10/02/18 Unknown Urine Turbidity Clear (Clear) 10/02/18 Unknown Urine pH 5.0 (5.0-7.0) 10/02/18 Unknown Ur Specific [place] 1.029 (1.003-1.030) 10/02/18 Unknown Urine Protein >500 mg/dL (Negative) 10/02/18 Unknown Urine Glucose (UA) >=500 mg/dL (Negative) 10/02/18 Unknown Urine Ketones 80 mg/dL (Negative) 10/02/18 Unknown Urine Blood Sm (Negative) 10/02/18 Unknown Urine Nitrite Neg (Negative) 10/02/18 Unknown Urine Bilirubin Neg (Negative) 10/02/18 Unknown Urine Urobilinogen < 2.0 mg/dL (<2.0) 10/02/18 Unknown Ur Leukocyte Esterase Neg (Negative) 10/02/18 Unknown Urine WBC (Auto) 2.0 /HPF (0.0-6.0) 10/02/18 Unknown Urine RBC (Auto) 5.0 /HPF (0.0-6.0) 10/02/18 Unknown Urine Mucus Few /HPF 10/02/18 Unknown
[2018-10-04] MEDS: SODIUM CHLORIDE FLUSH SYRINGE 10 ML IV PRN (21:25)
[2018-10-05] MEDS: HumaLOG SUB-Q SCH ×4 (00:47→17:48)
[2018-10-05] MEDS: APRESOLINE PO SCH ×3 (06:42→21:13)
[2018-10-05] MEDS: NORVASC PO SCH (10:36)
[2018-10-05] MEDS: HEPARIN SUB-Q SCH ×2 (10:36→21:13)
[2018-10-05] MEDS: BABY ASPIRIN PO SCH (10:36)
--- NOTE | 2018-10-05 13:19 | Progress Note ---
Subjective Date of service: 10/05/18 Interval history: the left thalamic infarct explans totally presenting symptoms and signs... medical therapy recommended Objective - Vital Sign Vital Signs - 12hr 10/05/18 10/05/18 10/05/18 04:40 08:06 12:00 Temperature 98.6 F 98.5 F Pulse Rate 105 H 97 H Respiratory 18 18 Rate Blood Pressure 153/77 151/79 O2 Sat by Pulse 96 Oximetry - Laboratory Findings CBC and BMP: 10/04/18 07:20 10/04/18 07:20 Abnormal Lab Findings: Abnormal Labs 10/02/18 10/02/18 10/02/18 14:46 15:22 15:22 WBC 12.9 H MCH 27 L RDW [place] % (Auto) Martin # 0.9 H Seg Neutrophils % 75.9 H Seg Neutrophils # 9.8 H APTT VBG pH Sodium 135 L Potassium Chloride 91.5 L Carbon Dioxide 19 L BUN 21 H Glucose 440 H POC Glucose 382 H Hemoglobin A1c Triglycerides Cholesterol LDL Cholesterol Direct HDL Cholesterol 10/02/18 10/02/18 10/02/18 15:22 17:04 18:10 WBC MCH RDW [place] % (Auto) Martin # Seg Neutrophils % Seg Neutrophils # APTT 20.5 L VBG pH 7.468 H Sodium Potassium Chloride Carbon Dioxide BUN Glucose POC Glucose 389 H Hemoglobin A1c Triglycerides Cholesterol LDL Cholesterol Direct HDL Cholesterol 10/02/18 10/03/18 10/03/18 19:13 00:14 05:52 WBC MCH RDW [place] % (Auto) Martin # Seg Neutrophils % Seg Neutrophils # APTT VBG pH Sodium Potassium Chloride Carbon Dioxide BUN Glucose POC Glucose 367 H Hemoglobin A1c 14.6 H Triglycerides 302 H Cholesterol 209 H LDL Cholesterol Direct 142 H HDL Cholesterol 36 L 10/03/18 10/03/18 10/03/18 06:33 09:40 09:40 WBC MCH RDW 15.3 H Martin % (Auto) 8.7 H Martin # 0.9 H Seg Neutrophils % 71.7 H Seg Neutrophils # APTT VBG pH Sodium Potassium Chloride 97.7 L Carbon Dioxide BUN 20 H Glucose 324 H POC Glucose 282 H Hemoglobin A1c Triglycerides Cholesterol LDL Cholesterol Direct HDL Cholesterol 10/03/18 10/03/18 10/03/18 11:34 16:40 21:41 WBC MCH RDW [place] % (Auto) [place] # Seg Neutrophils % Seg Neutrophils # APTT VBG pH Sodium Potassium Chloride Carbon Dioxide BUN Glucose POC Glucose 414 H 414 H 349 H Hemoglobin A1c Triglycerides Cholesterol LDL Cholesterol Direct HDL Cholesterol 10/04/18 10/04/18 10/04/18 05:54 07:20 07:20 WBC MCH 27 L RDW [place] % (Auto) 8.3 H [place] # Seg Neutrophils % Seg Neutrophils # APTT VBG pH Sodium Potassium 3.4 L Chloride Carbon Dioxide 21 L BUN 22 H Glucose 352 H POC Glucose 353 H Hemoglobin A1c Triglycerides Cholesterol LDL Cholesterol Direct HDL Cholesterol 10/04/18 10/04/18 10/04/18 11:39 16:12 21:49 WBC MCH RDW [place] % (Auto) [place] # Seg Neutrophils % Seg Neutrophils # APTT VBG pH Sodium Potassium Chloride Carbon Dioxide BUN Glucose POC Glucose 289 H 332 H 365 H Hemoglobin A1c Triglycerides Cholesterol LDL Cholesterol Direct HDL Cholesterol 10/05/18 10/05/18 06:26 12:23 WBC MCH RDW [place] % (Auto) [place] # Seg Neutrophils % Seg Neutrophils # APTT VBG pH Sodium Potassium Chloride Carbon Dioxide BUN Glucose POC Glucose 194 H 349 H Hemoglobin A1c Triglycerides Cholesterol LDL Cholesterol Direct HDL Cholesterol
--- NOTE | 2018-10-05 13:20 | Vascular Lab Report ---
FINAL REPORT EXAM: VL CAROTID DUPLEX BILAT HISTORY: stroke TECHNIQUE: Grayscale and color and spectral Doppler ultrasound imaging of the carotid arteries was p erformed. PRIORS: None. FINDINGS: No areas of complete occlusion. Normal waveforms are seen throughout. No aneurysm. Calcified atherosc lerotic plaque is seen bilaterally. Normal flow is seen in the external carotid arteries. Antegrade f low is seen in the vertebral arteries. Peak systolic velocities in cm/s below: Right: CCA: 158.7 proximally, 93.4 distally ICA: 98.3 proximally, 107.4 mid, 65.3 distally ECA: 128.9 Left: CCA: 179.8 proximally, 121.2 distally ICA: 75.2 proximally, 69.5 mid, 61.8 distally ECA: 114.9 The right ICA:CCA ratio is 0.68. The left ICA:CCA ratio is 0.42. IMPRESSION: Atherosclerotic plaque bilaterally with less than 50 percent stenosis of the internal carotid arterie s.
--- NOTE | 2018-10-05 13:40 | Progress Note ---
Assessment and Plan Assessment and plan: CVA - CT showed acute/subacute ischemia on the left thalamus - Echocardiogram reveals EF of 50-55% without evidence of shunting and negative color Doppler for atrial septal defect. - Patient is on statin and aspirin - PT/OT - Neurology consulted Diabetes mellitus with hyperglycemia - Hemoglobin A1c is 14.6 - Patient is on sliding scale insulin, increased 70 /30 to 35 units twice a day, we'll monitor Accu-Chek and adjust as needed, patient was on 90 units of Levemir daily at bedtime at home, family reports patient was not compliant with medications because home health stop coming to the house. SIRS - Leukocytosis with tachycardia, resolved - DC empiric antibiotic Hyperlipidemia - On statin Uncontrolled hypertension - Continru current medication regimen DVT prophylaxis - on heparin Disposition - Will continue inpatient care - PT evaluation, patient may need subacute rehab History Interval history: 58 YO Female with DM, HTN, Obesity, Asthma presents to ED for evaluation. Pt is confused and unable to provide detailed history. Pt history provided by daughter who is at bedside during exam and interview. As per daughter, the patient was in her usual state of health at bedtime around 2000 hrs. Pt awoke from sleep this morning and was found to be confused and unable to conduct activities of daily living which is a departure for her normal state of health. EMS notified, and upon arrival the patient was found to be confused and with neurologic deficit. Code stroke was called and patient was transported to [facility] for further care and evaluation. Pt seen and evaluated in ED and found to have symptoms consistent with CVA, Sepsis, Acidosis, and Encephalopathy. Pt admitted to telemetry and initiated on CVA protocol, as well as Sepsis protocols. Hospitalist Physical - Constitutional Vitals: Temp Pulse Resp BP Pulse Ox 98.2 F 104 H 18 147/80 98 10/05/18 12:20 10/05/18 12:20 10/05/18 12:20 10/05/18 12:20 10/05/18 12:20 General appearance: Present: mild distress, obese - EENT Eyes: Present: PERRL, EOM intact ENT: hearing intact, clear oral mucosa, dentition normal - Neck Neck: Present: supple, normal ROM - Respiratory Respiratory effort: normal Respiratory: bilateral: CTA - Cardiovascular Rhythm: regular Heart Sounds: Present: S1 & S2. Absent: gallop, rub - Extremities Extremities: no ischemia, No edema, Full ROM - Abdominal General gastrointestinal: soft, non-tender, non-distended, normal bowel sounds - Integumentary Integumentary: Present: clear, warm, dry - Neurologic Neurologic: CNII-XII intact, moves all extremities Results - Labs CBC & Chem 7: 10/04/18 07:20 10/04/18 07:20 Labs: Laboratory Last Values WBC 8.9 K/mm3 (4.5-11.0) 10/04/18 07:20 RBC 4.08 M/mm3 (3.65-5.03) 10/04/18 07:20 Hgb 11.1 gm/dl (10.1-14.3) 10/04/18 07:20 Hct 33.7 % (30.3-42.9) 10/04/18 07:20 MCV 83 fl (79-97) 10/04/18 07:20 MCH 27 pg (28-32) L 10/04/18 07:20 MCHC 33 % (30-34) 10/04/18 07:20 RDW 15.2 % (13.2-15.2) 10/04/18 07:20 Plt Count 357 K/mm3 (140-440) 10/04/18 07:20 Lymph % (Auto) 27.2 % (13.4-35.0) 10/04/18 07:20 [place] % (Auto) 8.3 % (0.0-7.3) H 10/04/18 07:20 Eos % (Auto) 1.8 % (0.0-4.3) 10/04/18 07:20 Baso % (Auto) 0.5 % (0.0-1.8) 10/04/18 07:20 Lymph # 2.4 K/mm3 (1.2-5.4) 10/04/18 07:20 [place] # 0.7 K/mm3 (0.0-0.8) 10/04/18 07:20 Eos # 0.2 K/mm3 (0.0-0.4) 10/04/18 07:20 Baso # 0.0 K/mm3 (0.0-0.1) 10/04/18 07:20 Seg Neutrophils % 62.2 % (40.0-70.0) 10/04/18 07:20 Seg Neutrophils # 5.5 K/mm3 (1.8-7.7) 10/04/18 07:20 PT 14.0 Sec. (12.2-14.9) 10/02/18 15:22 INR 1.04 (0.87-1.13) 10/02/18 15:22 APTT 20.5 Sec. (24.2-36.6) L 10/02/18 15:22 VBG pH 7.468 (7.320-7.420) H 10/02/18 17:04 Sodium 137 mmol/L (137-145) 10/04/18 07:20 Potassium 3.4 mmol/L (3.6-5.0) L 10/04/18 07:20 Chloride 98.5 mmol/L (98-107) 10/04/18 07:20 Carbon Dioxide 21 mmol/L (22-30) L 10/04/18 07:20 Anion Gap 21 mmol/L 10/04/18 07:20 BUN 22 mg/dL (7-17) H 10/04/18 07:20 Creatinine 1.2 mg/dL (0.7-1.2) 10/04/18 07:20 Estimated GFR 56 ml/min 10/04/18 07:20 BUN/Creatinine Ratio 18 % 10/04/18 07:20 Glucose 352 mg/dL (65-100) H 10/04/18 07:20 POC Glucose 349 (70-105) H 10/05/18 12:23 Hemoglobin A1c 14.6 % (4-6) H 10/02/18 19:13 Lactic Acid 1.60 mmol/L (0.7-2.0) 10/02/18 22:34 Calcium 9.1 mg/dL (8.4-10.2) 10/04/18 07:20 Total Bilirubin 0.40 mg/dL (0.1-1.2) 10/02/18 15:22 AST 18 units/L (5-40) 10/02/18 15:22 ALT 18 units/L (7-56) 10/02/18 15:22 Alkaline Phosphatase 88 units/L (35-129) 10/02/18 15:22 Troponin T < 0.010 ng/mL (0.00-0.029) 10/02/18 15:22 Total Protein 7.4 g/dL (6.3-8.2) 10/02/18 15:22 Albumin 4.1 g/dL (3.9-5) 10/02/18 15:22 Albumin/Globulin Ratio 1.2 % 10/02/18 15:22 Triglycerides 302 mg/dL (2-149) H 10/03/18 05:52 Cholesterol 209 mg/dL (50-199) H 10/03/18 05:52 LDL Cholesterol Direct 142 mg/dL (50-130) H 10/03/18 05:52 HDL Cholesterol 36 mg/dL (40-59) L 10/03/18 05:52 Cholesterol/HDL Ratio 5.80 % 10/03/18 05:52 Urine Color Yellow (Yellow) 10/02/18 Unknown Urine Turbidity Clear (Clear) 10/02/18 Unknown Urine pH 5.0 (5.0-7.0) 10/02/18 Unknown Ur Specific [place] 1.029 (1.003-1.030) 10/02/18 Unknown Urine Protein >500 mg/dL (Negative) 10/02/18 Unknown Urine Glucose (UA) >=500 mg/dL (Negative) 10/02/18 Unknown Urine Ketones 80 mg/dL (Negative) 10/02/18 Unknown Urine Blood Sm (Negative) 10/02/18 Unknown Urine Nitrite Neg (Negative) 10/02/18 Unknown Urine Bilirubin Neg (Negative) 10/02/18 Unknown Urine Urobilinogen < 2.0 mg/dL (<2.0) 10/02/18 Unknown Ur Leukocyte Esterase Neg (Negative) 10/02/18 Unknown Urine WBC (Auto) 2.0 /HPF (0.0-6.0) 10/02/18 Unknown Urine RBC (Auto) 5.0 /HPF (0.0-6.0) 10/02/18 Unknown Urine Mucus Few /HPF 10/02/18 Unknown
[2018-10-05] MEDS: SODIUM CHLORIDE FLUSH SYRINGE 10 ML IV PRN (21:14)
[2018-10-06] MEDS: HumaLOG SUB-Q SCH ×5 (01:23→23:34)
[2018-10-06] MEDS: APRESOLINE PO SCH ×3 (05:50→21:49)
[2018-10-06] MEDS: BABY ASPIRIN PO SCH (11:10)
[2018-10-06] MEDS: NORVASC PO SCH (11:10)
[2018-10-06] MEDS: HEPARIN SUB-Q SCH ×2 (11:13→21:49)
--- NOTE | 2018-10-06 11:33 | Progress Note ---
Assessment and Plan Assessment and plan: CVA - CT showed acute/subacute ischemia on the left thalamus - Echocardiogram reveals EF of 50-55% without evidence of shunting and negative color Doppler for atrial septal defect. - Patient is on statin and aspirin - PT/OT - Neurology consulted Diabetes mellitus with hyperglycemia - Hemoglobin A1c is 14.6 - Patient is on sliding scale insulin, increased 70 /30 to 35 units twice a day, we'll monitor Accu-Chek and adjust as needed, patient was on 90 units of Levemir daily at bedtime at home, family reports patient was not compliant with medications because home health stop coming to the house. SIRS - Leukocytosis with tachycardia, resolved - DC empiric antibiotic Hyperlipidemia - On statin Uncontrolled hypertension - Continru current medication regimen DVT prophylaxis - on heparin Disposition - Will continue inpatient care - PT evaluation, patient may need subacute rehab History Interval history: 58 YO Female with DM, HTN, Obesity, Asthma presents to ED for evaluation. Pt is confused and unable to provide detailed history. Pt history provided by daughter who is at bedside during exam and interview. As per daughter, the patient was in her usual state of health at bedtime around 2000 hrs. Pt awoke from sleep this morning and was found to be confused and unable to conduct activities of daily living which is a departure for her normal state of health. EMS notified, and upon arrival the patient was found to be confused and with neurologic deficit. Code stroke was called and patient was transported to [facility] for further care and evaluation. Pt seen and evaluated in ED and found to have symptoms consistent with CVA, Sepsis, Acidosis, and Encephalopathy. Pt admitted to telemetry and initiated on CVA protocol, as well as Sepsis protocols. Hospitalist Physical - Constitutional Vitals: Temp Pulse Resp BP Pulse Ox 97.9 F 104 H 18 128/72 100 10/06/18 09:19 10/06/18 09:19 10/06/18 09:19 10/06/18 09:19 10/06/18 09:19 General appearance: Present: no acute distress, obese - EENT Eyes: Present: PERRL, EOM intact ENT: hearing intact, clear oral mucosa, dentition normal - Neck Neck: Present: supple, normal ROM - Respiratory Respiratory effort: normal Respiratory: bilateral: CTA - Cardiovascular Rhythm: regular Heart Sounds: Present: S1 & S2. Absent: gallop, rub - Extremities Extremities: no ischemia, No edema, Full ROM - Abdominal General gastrointestinal: soft, non-tender, non-distended, normal bowel sounds - Integumentary Integumentary: Present: clear, warm, dry - Neurologic Neurologic: CNII-XII intact, moves all extremities Results - Labs CBC & Chem 7: 10/04/18 07:20 10/04/18 07:20 Labs: Laboratory Last Values WBC 8.9 K/mm3 (4.5-11.0) 10/04/18 07:20 RBC 4.08 M/mm3 (3.65-5.03) 10/04/18 07:20 Hgb 11.1 gm/dl (10.1-14.3) 10/04/18 07:20 Hct 33.7 % (30.3-42.9) 10/04/18 07:20 MCV 83 fl (79-97) 10/04/18 07:20 MCH 27 pg (28-32) L 10/04/18 07:20 MCHC 33 % (30-34) 10/04/18 07:20 RDW 15.2 % (13.2-15.2) 10/04/18 07:20 Plt Count 357 K/mm3 (140-440) 10/04/18 07:20 Lymph % (Auto) 27.2 % (13.4-35.0) 10/04/18 07:20 [place] % (Auto) 8.3 % (0.0-7.3) H 10/04/18 07:20 Eos % (Auto) 1.8 % (0.0-4.3) 10/04/18 07:20 Baso % (Auto) 0.5 % (0.0-1.8) 10/04/18 07:20 Lymph # 2.4 K/mm3 (1.2-5.4) 10/04/18 07:20 [place] # 0.7 K/mm3 (0.0-0.8) 10/04/18 07:20 Eos # 0.2 K/mm3 (0.0-0.4) 10/04/18 07:20 Baso # 0.0 K/mm3 (0.0-0.1) 10/04/18 07:20 Seg Neutrophils % 62.2 % (40.0-70.0) 10/04/18 07:20 Seg Neutrophils # 5.5 K/mm3 (1.8-7.7) 10/04/18 07:20 PT 14.0 Sec. (12.2-14.9) 10/02/18 15:22 INR 1.04 (0.87-1.13) 10/02/18 15:22 APTT 20.5 Sec. (24.2-36.6) L 10/02/18 15:22 VBG pH 7.468 (7.320-7.420) H 10/02/18 17:04 Sodium 137 mmol/L (137-145) 10/04/18 07:20 Potassium 3.4 mmol/L (3.6-5.0) L 10/04/18 07:20 Chloride 98.5 mmol/L (98-107) 10/04/18 07:20 Carbon Dioxide 21 mmol/L (22-30) L 10/04/18 07:20 Anion Gap 21 mmol/L 10/04/18 07:20 BUN 22 mg/dL (7-17) H 10/04/18 07:20 Creatinine 1.2 mg/dL (0.7-1.2) 10/04/18 07:20 Estimated GFR 56 ml/min 10/04/18 07:20 BUN/Creatinine Ratio 18 % 10/04/18 07:20 Glucose 352 mg/dL (65-100) H 10/04/18 07:20 POC Glucose 219 (70-105) H 10/06/18 05:29 Hemoglobin A1c 14.6 % (4-6) H 10/02/18 19:13 Lactic Acid 1.60 mmol/L (0.7-2.0) 10/02/18 22:34 Calcium 9.1 mg/dL (8.4-10.2) 10/04/18 07:20 Total Bilirubin 0.40 mg/dL (0.1-1.2) 10/02/18 15:22 AST 18 units/L (5-40) 10/02/18 15:22 ALT 18 units/L (7-56) 10/02/18 15:22 Alkaline Phosphatase 88 units/L (35-129) 10/02/18 15:22 Troponin T < 0.010 ng/mL (0.00-0.029) 10/02/18 15:22 Total Protein 7.4 g/dL (6.3-8.2) 10/02/18 15:22 Albumin 4.1 g/dL (3.9-5) 10/02/18 15:22 Albumin/Globulin Ratio 1.2 % 10/02/18 15:22 Triglycerides 302 mg/dL (2-149) H 10/03/18 05:52 Cholesterol 209 mg/dL (50-199) H 10/03/18 05:52 LDL Cholesterol Direct 142 mg/dL (50-130) H 10/03/18 05:52 HDL Cholesterol 36 mg/dL (40-59) L 10/03/18 05:52 Cholesterol/HDL Ratio 5.80 % 10/03/18 05:52 Urine Color Yellow (Yellow) 10/02/18 Unknown Urine Turbidity Clear (Clear) 10/02/18 Unknown Urine pH 5.0 (5.0-7.0) 10/02/18 Unknown Ur Specific [place] 1.029 (1.003-1.030) 10/02/18 Unknown Urine Protein >500 mg/dL (Negative) 10/02/18 Unknown Urine Glucose (UA) >=500 mg/dL (Negative) 10/02/18 Unknown Urine Ketones 80 mg/dL (Negative) 10/02/18 Unknown Urine Blood Sm (Negative) 10/02/18 Unknown Urine Nitrite Neg (Negative) 10/02/18 Unknown Urine Bilirubin Neg (Negative) 10/02/18 Unknown Urine Urobilinogen < 2.0 mg/dL (<2.0) 10/02/18 Unknown Ur Leukocyte Esterase Neg (Negative) 10/02/18 Unknown Urine WBC (Auto) 2.0 /HPF (0.0-6.0) 10/02/18 Unknown Urine RBC (Auto) 5.0 /HPF (0.0-6.0) 10/02/18 Unknown Urine Mucus Few /HPF 10/02/18 Unknown
[2018-10-07] MEDS: APRESOLINE PO SCH (06:12)
[2018-10-07] MEDS: HumaLOG SUB-Q SCH (06:16)
[2018-10-07] MEDS: NORVASC PO SCH (09:34)
[2018-10-07] MEDS: HEPARIN SUB-Q SCH (09:35)
[2018-10-07] MEDS: BABY ASPIRIN PO SCH (09:35)
[2018-10-07 09:37] VITALS: BP 150/88
[2018-10-07] MEDS ORDERED: LOPRESSOR PO SCH (10:00)
--- NOTE | 2018-10-07 11:12 | Discharge Summary ---
Providers - Providers Date of Admission: 10/02/18 19:09 Date of discharge: 10/07/18 Attending physician: LALO LYONS 10/02/18 19:09 Occupational Therapy Evaluate and Treat [CONS] Routine Comment: Reason For Exam: Neuro deficits Physical Therapy Evaluation and Treat [CONS] Routine Comment: Reason For Exam: Neuro deficits 10/02/18 19:10 Speech Therapy Evaluation and Treat [CONS] Routine Reason For Exam: swallow eval 10/03/18 08:18 Consult to Physician [CONS] Routine Comment: Consulting Provider: ROZ BRUCE Physician Instructions: Reason For Exam: cva Primary care physician: COREY IYER MD Hospitalization Reason for admission: cva Condition: Stable Hospital course: 58 YO Female with DM, HTN, Obesity, Asthma presents to ED for evaluation and found to have symptoms consistent with CVA, Sepsis, Acidosis, and Encephalopathy. Pt admitted to telemetry and initiated on CVA protocol, as well as Sepsis protocols. The patient was seen by neurology in consultation. CT scan showed acute/subacute ischemia of the left thalamus. Echocardiogram revealed EF of 50-55% without evidence of shunting and negative color Doppler for atrial septal defect. The patient was treated with aspirin and statin. The patient was also noted to have diabetes mellitus type 2 with significant hyperglycemia that was uncontrolled. Hemoglobin A1c was found to be 14.6. Insulin 70/30 was increased to 45 units twice a day at discharge. Case management and physical therapy will consult recommended home with home health PT. Patient was refusing any kind of rehabilitation placement and wanted to only go home. Patient is felt to have received maximal hospital benefit and was discharged home. Dedicated discharge time 32 minutes. Disposition: [id number] HOME UNDER HOME [facility] Time spent for discharge: 32 - Discharge Diagnoses (1) Acidosis Status: Acute (2) CVA (cerebral vascular accident) Status: Acute Qualifiers: Precerebral and cerebral artery: posterior cerebral artery (3) Diabetes Status: Acute (4) Encephalopathy Status: Acute (5) Lacunar infarct, acute Status: Acute Core Measure Documentation - Palliative Care Palliative Care/ Comfort Measures: Not Applicable - Core Measures Any of the following diagnoses?: stroke - Stroke Discharge Requirements Statin for LDL = or >70 mg/dl on DC: Yes Anticoag for atrial fib/atrial flutter: Not Applicable Antithrombotic for ischemic stroke: Yes Exam - Constitutional Vitals: Temp Pulse Resp BP Pulse Ox 98.0 F 104 H 18 150/88 96 10/07/18 08:26 10/07/18 09:34 10/07/18 08:26 10/07/18 09:34 10/07/18 08:26 General appearance: Present: no acute distress, well-nourished - EENT Eyes: Present: PERRL ENT: hearing intact, clear oral mucosa - Neck Neck: Present: supple, normal ROM - Respiratory Respiratory effort: normal Respiratory: bilateral: CTA - Cardiovascular Heart Sounds: Present: S1 & S2. Absent: rub, click - Extremities Extremities: pulses symmetrical, No edema Peripheral Pulses: within normal limits - Abdominal General gastrointestinal: Present: soft, non-tender, non-distended, normal bowel sounds Female genitourinary: Present: normal - Integumentary Integumentary: Present: clear, warm, dry - Musculoskeletal Musculoskeletal: gait normal, strength equal bilaterally - Psychiatric Psychiatric: appropriate mood/affect, intact judgment & insight - Neurologic Neurologic: CNII-XII intact, moves all extremities Plan Activity: advance as tolerated Weight Bearing Status: Weight Bear as Tolerated Diet: low fat, low cholesterol, low salt, diabetic Special Instructions: physical therapy, home health RN Follow up with: COREY IYER MD [Primary Care Provider] - 7 Days ROZ BRUCE MD [Staff Physician] - 7 Days Prescriptions: amLODIPine [Norvasc] 10 mg PO QDAY #30 tablet Aspirin [Aspirin BABY CHEW TAB] 81 mg PO QDAY #30 tab.chew AtorvaSTATin [Lipitor] 40 mg PO QHS #30 tablet hydrALAZINE [Apresoline TAB] 50 mg PO Q8HR #90 tablet Insulin NPH/Regular [NovoLIN 70/30] 45 unit SUB-Q BIDDIAB 30 Days units Metoprolol [Lopressor TAB] 12.5 mg PO BID #60 tablet
== END 2018-10-07 12:00 | disposition home health service (06) | DRG 871 ==
LOC: ED 14:13 → 4A 19:09 → 3A 10-06 14:41
PROVIDERS: ADMIT Internal Medicine; ATTEND Hospitalist
DX: A41.9 Sepsis, unspecified organism (principal); E11.00 Type 2 diabetes mellitus with hyperosmolarity without nonketotic hyperglycemic-hyperosmolar coma (NKHHC); I63.9 Cerebral infarction, unspecified; E87.2 Acidosis; G93.40 Encephalopathy, unspecified; I10 Essential (primary) hypertension; E66.9 Obesity, unspecified; J45.909 Unspecified asthma, uncomplicated; Z88.6 Allergy status to analgesic agent; Z88.1 Allergy status to other antibiotic agents; Z88.8 Allergy status to other drugs, medicaments and biological substances; Z91.040 Latex allergy status; Z91.14 Patient's other noncompliance with medication regimen; E78.5 Hyperlipidemia, unspecified
CPT/HCPCS: 36415; 70450; 70544; 70551; 71045; 80048; 80053; 80061; 81001; 82140; 82805; 82962; 83036; 84484; 85025; 85610; 85730; 87040; 93005; 93010; 93306; 93880; 95819; G0378; A9270-GY; J0360; J1644; J1815; J1956; J7030

== ENCOUNTER 2019-06-01 03:46 | Emergency (ER) | payer MEDICARE, OTHER ==
[2019-06-01] MEDS ORDERED: ASPIRIN PO ONE (03:56)
--- NOTE | 2019-06-01 04:38 | XRay Report ---
CHEST 1 VIEW 06/01/2019 4:21 AM INDICATION / CLINICAL INFORMATION: Chest Pain. COMPARISON: Chest x-ray 10/02/2018 FINDINGS: SUPPORT DEVICES: None. HEART / MEDIASTINUM: No significant abnormality. LUNGS / PLEURA: No significant pulmonary or pleural abnormality. No pneumothorax. ADDITIONAL FINDINGS: No significant additional findings. IMPRESSION: 1. No acute findings. Signer Name: Anjel Shah MD Signed: 06/01/2019 4:34 AM Workstation Name: [facility]
[2019-06-01 04:40] LABS: Basophils # (Auto) 0.1 K/mm3 (0.0-0.1); Basophils % (Auto) 0.9 % (0.0-1.8); Eosinophils # (Auto) 0.2 K/mm3 (0.0-0.4); Eosinophils % (Auto) 3.6 % (0.0-4.3); Hematocrit 32.6 % (30.3-42.9); Hemoglobin 10.8 gm/dl (10.1-14.3); Lymphocytes # (Auto) 1.6 K/mm3 (1.2-5.4); Lymphocytes % (Auto) 24.1 % (13.4-35.0); Mean Corpuscular HGB Conc 33 % (30-34); Mean Corpuscular Volume 81 fl (79-97); Monocytes # (Auto) 0.8 K/mm3 (0.0-0.8); Monocytes % (Auto) 12.1 % (0.0-7.3); Platelet Count 321 K/mm3 (140-440); Red Blood Count 4.04 M/mm3 (3.65-5.03); Red Cell Distribution Width 15.9 % (13.2-15.2)
[2019-06-01 05:00] LABS: BUN/Creatinine Ratio 25; Blood Urea Nitrogen 30 mg/dL (7-17); Calcium 9.3 mg/dL (8.4-10.2); Hemolysis Index 5
[2019-06-01] MEDS ORDERED: PEPCID PO ONE (05:08)
[2019-06-01] MEDS ORDERED: TYLENOL PO ONE (05:08)
--- NOTE | 2019-06-01 05:08 | Event Note ---
Date: 06/01/19 Medical screening examination: Pleasant 58-year-old female, history of stroke, obesity, presumed diabetes and hypertension, presenting with nontraumatic right-sided nonexertional chest pain, without shortness of breath, vomiting, diaphoresis. Endorses no DVT or pulmonary embolus risk factors. Does not know the color of her bowel movements. No fevers or chills. Taking aspirin. Appears comfortable. Cardiac protocol initiated. Vital Signs 06/01/19 03:55 Temperature 98.2 F Pulse Rate 92 H Respiratory 18 Rate Blood Pressure 163/87 [Right] O2 Sat by Pulse 98 Oximetry Lab Results 06/01/19 06/01/19 Range/Units 04:25 04:25 WBC 6.9 (4.5-11.0) K/mm3 RBC 4.04 (3.65-5.03) M/mm3 Hgb 10.8 (10.1-14.3) gm/dl Hct 32.6 (30.3-42.9) % MCV 81 (79-97) fl MCH 27 L (28-32) pg MCHC 33 (30-34) % RDW 15.9 H (13.2-15.2) % Plt Count 321 (140-440) K/mm3 Lymph % (Auto) 24.1 (13.4-35.0) % [place] % (Auto) 12.1 H (0.0-7.3) % Eos % (Auto) 3.6 (0.0-4.3) % Baso % (Auto) 0.9 (0.0-1.8) % Lymph # 1.6 (1.2-5.4) K/mm3 [place] # 0.8 (0.0-0.8) K/mm3 Eos # 0.2 (0.0-0.4) K/mm3 Baso # 0.1 (0.0-0.1) K/mm3 Seg Neutrophils % 59.3 (40.0-70.0) % Seg Neutrophils # 4.1 (1.8-7.7) K/mm3 Sodium 139 (137-145) mmol/L Potassium 3.5 L (3.6-5.0) mmol/L Chloride 96.1 L (98-107) mmol/L Carbon Dioxide 31 H (22-30) mmol/L Anion Gap 15 mmol/L BUN 30 H (7-17) mg/dL Creatinine 1.2 (0.7-1.2) mg/dL Estimated GFR 56 ml/min BUN/Creatinine Ratio 25 % Glucose 262 H (65-100) mg/dL Calcium 9.3 (8.4-10.2) mg/dL Troponin T < 0.010 (0.00-0.029) ng/mL
[2019-06-01] MEDS ORDERED: NORCO 5/325 PO ONE (06:44)
[2019-06-01] MEDS ORDERED: ASPIRIN ONE (07:29)
[2019-06-01] MEDS ORDERED: PEPCID ONE (07:29)
[2019-06-01 08:02] LABS: Alanine Aminotransferase 13 units/L (7-56); Albumin 3.5 g/dL (3.9-5)
[2019-06-01 08:05] LABS: Bilirubin,Direct < 0.2 mg/dL (0-0.2)
--- NOTE | 2019-06-01 08:14 | Emergency Department Report ---
ED Chest Pain HPI - General Chief Complaint: Chest Pain Stated Complaint: CHEST PAIN, SWOLLEN HANFS AND FEET Time Seen by Provider: 06/01/19 06:09 Source: patient, family, old records reviewed (patient immediately here in September for CVA. This apparently has some memory deficits. Echocardiogram September 2018 with EF of 50-55%) Mode of arrival: Ambulatory Limitations: Other - History of Present Illness Initial Comments: 58-year-old female with a past smoking history of obesity, stroke, diabetes, hypertension presents to the Hospital complaining of right-sided chest pain with 2-3 days. Pain worsened this morning. Pain was initially intermittent but now constant and sharp. It was a palpation and movement. Patient denies shortness of breath, nausea, vomiting, or diaphoresis. Last stress test was 3-4 years ago prior to the knee surgery and pt was cleared for surgery. Patient also has chronic intermittent hand swelling. The last week she has had progressively worsening lower extremity edema which patient states is new. PMD: Dr. Lee Severity scale (0 -10): 4 - Related Data Previous Rx's Medication Instructions Recorded Last Taken Type Aspirin [Aspirin BABY CHEW TAB] 81 mg PO QDAY #30 tab.chew 10/07/18 Unknown Rx AtorvaSTATin [Lipitor] 40 mg PO QHS #30 tablet 10/07/18 Unknown Rx Insulin NPH/Regular [NovoLIN 70/30] 45 unit SUB-Q BIDDIAB 30 Days 10/07/18 Unknown Rx units Metoprolol [Lopressor TAB] 12.5 mg PO BID #60 tablet 10/07/18 Unknown Rx amLODIPine [Norvasc] 10 mg PO QDAY #30 tablet 10/07/18 Unknown Rx hydrALAZINE [Apresoline TAB] 50 mg PO Q8HR #90 tablet 10/07/18 Unknown Rx HYDROcodone/APAP 5-325 [[place] 1 each PO Q6HR PRN #12 tablet 06/01/19 Unknown Rx 5/325] Allergies Allergy/AdvReac Type Severity Reaction Status Date / Time latex Allergy Severe Itching Verified 10/02/18 21:23 erythromycin base Allergy Unknown Verified 06/01/19 03:55 [From E-Mycin] Heart Score - HEART Score History: Slightly suspicious EKG: Non-specific Age: 45-65 Risk factors: > 3 risk factors or hx of atherosclerotic disease Troponin: < normal limit HEART Score: 4 ED Review of Systems ROS: Stated complaint: CHEST PAIN, SWOLLEN HANFS AND FEET Other details as noted in HPI Comment: All other systems reviewed and negative ED Past Medical Hx - Past Medical History Previous Medical History?: Yes Hx Hypertension: Yes Hx CVA: Yes Hx Diabetes: Yes Hx Asthma: Yes Additional medical history: Glaucoma - Surgical History Past Surgical History?: Yes Additional Surgical History: bilateral eye surgery - Social History Smoking Status: Current Some Day Smoker Substance Use Type: Alcohol - Medications Home Medications: Home Medications Medication Instructions Recorded Confirmed Last Taken Type Aspirin [Aspirin BABY CHEW TAB] 81 mg PO QDAY #30 tab.chew 10/07/18 Unknown Rx AtorvaSTATin [Lipitor] 40 mg PO QHS #30 tablet 10/07/18 Unknown Rx Insulin NPH/Regular [NovoLIN 70/30] 45 unit SUB-Q BIDDIAB 30 Days 10/07/18 Unknown Rx units Metoprolol [Lopressor TAB] 12.5 mg PO BID #60 tablet 10/07/18 Unknown Rx amLODIPine [Norvasc] 10 mg PO QDAY #30 tablet 10/07/18 Unknown Rx hydrALAZINE [Apresoline TAB] 50 mg PO Q8HR #90 tablet 10/07/18 Unknown Rx HYDROcodone/APAP 5-325 [[place] 1 each PO Q6HR PRN #12 tablet 06/01/19 Unknown Rx 5/325] ED Physical Exam - General Limitations: Other - Other Other exam information: Normal: No acute distress Head: Atraumatic Eyes: Normal appearance, pupils equally reactive to light, extraocular movements intact ENT: Moist mucous membranes Neck: Normal appearance, no midline cervical tenderness, no meningismus Chest: Clear to auscultation bilaterally, no wheezes, rales, crackles Cardiovascular: Regular rate and rhythm, reproducible right-sided chest wall tenderness on palpation Abdomen: Soft, nontender, nondistended, no rebound or guarding, normal bowel sounds Back: Normal inspection Extremity: Bilateral leg and pedal edema pitting. Mild hand edema noted bilaterally. No warmth, erythema, or pain with movement. No leg asymmetry. Neuro: Alert and oriented 3, speech normal, no gross motor sensory deficit Psych: Appropriate Skin: No rash ED Course Vital Signs 06/01/19 06/01/19 06/01/19 03:55 05:14 05:15 Temperature 98.2 F Pulse Rate 92 H 80 80 Respiratory 18 14 22 Rate Blood Pressure Blood Pressure 163/87 [Right] O2 Sat by Pulse 98 98 98 Oximetry 06/01/19 06/01/19 06/01/19 05:30 05:46 06:00 Temperature Pulse Rate 79 84 86 Respiratory 15 17 16 Rate Blood Pressure 166/82 163/78 174/85 Blood Pressure [Right] O2 Sat by Pulse 96 92 91 Oximetry 06/01/19 06/01/19 06/01/19 06:16 06:30 06:46 Temperature Pulse Rate 86 85 Respiratory 18 16 Rate Blood Pressure 174/85 166/83 166/83 Blood Pressure [Right] O2 Sat by Pulse 94 93 99 Oximetry 06/01/19 06/01/19 06/01/19 06:55 07:00 07:35 Temperature Pulse Rate Respiratory 18 18 Rate Blood Pressure 166/83 Blood Pressure [Right] O2 Sat by Pulse 96 Oximetry 06/01/19 11:17 Temperature Pulse Rate 87 Respiratory 16 Rate Blood Pressure Blood Pressure 179/87 [Right] O2 Sat by Pulse 97 Oximetry VINCE score - Vince Score Age > 65: (0) No Aspirin use within the Past 7 Days: (0) No 3 or more CAD Risk Factors: (1) Yes 2 or more Angina events in past 24 hrs: (0) No Known CAD with more than 50% Stenosis: (0) No Elevated Cardiac Markers: (0) No ST Deviation Greater than 0.5mm: (0) No VINCE Score: 1 ED Medical Decision Making - Lab Data Result diagrams: 06/01/19 04:25 06/01/19 04:25 Lab Results 06/01/19 06/01/19 06/01/19 Range/Units 04:25 04:25 07:05 WBC 6.9 (4.5-11.0) K/mm3 RBC 4.04 (3.65-5.03) M/mm3 Hgb 10.8 (10.1-14.3) gm/dl Hct 32.6 (30.3-42.9) % MCV 81 (79-97) fl MCH 27 L (28-32) pg MCHC 33 (30-34) % RDW 15.9 H (13.2-15.2) % Plt Count 321 (140-440) K/mm3 Lymph % (Auto) 24.1 (13.4-35.0) % [place] % (Auto) 12.1 H (0.0-7.3) % Eos % (Auto) 3.6 (0.0-4.3) % Baso % (Auto) 0.9 (0.0-1.8) % Lymph # 1.6 (1.2-5.4) K/mm3 [place] # 0.8 (0.0-0.8) K/mm3 Eos # 0.2 (0.0-0.4) K/mm3 Baso # 0.1 (0.0-0.1) K/mm3 Seg Neutrophils % 59.3 (40.0-70.0) % Seg Neutrophils # 4.1 (1.8-7.7) K/mm3 D-Dimer (0-234) ng/mlDDU Sodium 139 (137-145) mmol/L Potassium 3.5 L (3.6-5.0) mmol/L Chloride 96.1 L (98-107) mmol/L Carbon Dioxide 31 H (22-30) mmol/L Anion Gap 15 mmol/L BUN 30 H (7-17) mg/dL Creatinine 1.2 (0.7-1.2) mg/dL Estimated GFR 56 ml/min BUN/Creatinine Ratio 25 % Glucose 262 H (65-100) mg/dL Calcium 9.3 (8.4-10.2) mg/dL Total Bilirubin (0.1-1.2) mg/dL Direct Bilirubin (0-0.2) mg/dL Indirect Bilirubin mg/dL AST (5-40) units/L ALT (7-56) units/L Alkaline Phosphatase (35-129) units/L Troponin T < 0.010 < 0.010 (0.00-0.029) ng/mL NT-Pro-B Natriuret Pep (0-900) pg/mL Total Protein (6.3-8.2) g/dL Albumin (3.9-5) g/dL Albumin/Globulin Ratio % 06/01/19 06/01/19 06/01/19 Range/Units 07:05 07:05 09:36 WBC (4.5-11.0) K/mm3 RBC (3.65-5.03) M/mm3 Hgb (10.1-14.3) gm/dl Hct (30.3-42.9) % MCV (79-97) fl MCH (28-32) pg MCHC (30-34) % RDW (13.2-15.2) % Plt Count (140-440) K/mm3 Lymph % (Auto) (13.4-35.0) % [place] % (Auto) (0.0-7.3) % Eos % (Auto) (0.0-4.3) % Baso % (Auto) (0.0-1.8) % Lymph # (1.2-5.4) K/mm3 [place] # (0.0-0.8) K/mm3 Eos # (0.0-0.4) K/mm3 Baso # (0.0-0.1) K/mm3 Seg Neutrophils % (40.0-70.0) % Seg Neutrophils # (1.8-7.7) K/mm3 D-Dimer 310.02 H (0-234) ng/mlDDU Sodium (137-145) mmol/L Potassium (3.6-5.0) mmol/L Chloride (98-107) mmol/L Carbon Dioxide (22-30) mmol/L Anion Gap mmol/L BUN (7-17) mg/dL Creatinine (0.7-1.2) mg/dL Estimated GFR ml/min BUN/Creatinine Ratio % Glucose (65-100) mg/dL Calcium (8.4-10.2) mg/dL Total Bilirubin 0.20 (0.1-1.2) mg/dL Direct Bilirubin < 0.2 (0-0.2) mg/dL Indirect Bilirubin 0.0 mg/dL AST 12 (5-40) units/L ALT 13 (7-56) units/L Alkaline Phosphatase 61 (35-129) units/L Troponin T < 0.010 (0.00-0.029) ng/mL NT-Pro-B Natriuret Pep 452.8 (0-900) pg/mL Total Protein 6.4 (6.3-8.2) g/dL Albumin 3.5 L (3.9-5) g/dL Albumin/Globulin Ratio 1.2 % - EKG Data -: EKG Interpreted by Ok EKG shows normal: sinus rhythm, axis (qrs 3), QRS complexes (qrsd 87), ST-T waves (no stemi) Rate: normal (86) - EKG Data When compared to previous EKG there are: no significant change - Radiology Data Radiology results: report reviewed CHEST 1 VIEW 06/01/2019 4:21 AM INDICATION / CLINICAL INFORMATION: Chest Pain. COMPARISON: Chest x-ray 10/02/2018 FINDINGS: SUPPORT DEVICES: None. HEART / MEDIASTINUM: No significant abnormality. LUNGS / PLEURA: No significant pulmonary or pleural abnormality. No pneumothorax. ADDITIONAL FINDINGS: No significant additional findings. IMPRESSION: 1. No acute findings. VENTILATION PERFUSION PULMONARY SCINTIGRAPHY HISTORY: Chest pain, shortness of breath COMPARISON: 06/01/2019 chest radiograph. TECHNIQUE: Radiopharmaceutical was inhaled. Tc-99m-MAA was then injected. Ventilation and perfusion images were acquired. RADIOPHARMACEUTICAL: 18.6 mCi of Xe-133 inhaled 5.3 mCi of Tc-99m-MAA injected FINDINGS: VENTILATION: No significant air trapping or defect. PERFUSION: No significant segmental or non-segmental defect. Additional Findings: None. IMPRESSION: 1. Low probability for pulmonary embolism. DUPLEX DOPPLER LOWER EXTREMITY VEINS, BILATERAL INDICATION: Bilateral lower extremity edema. TECHNIQUE: Duplex doppler imaging was performed through the veins of both lower extremities using venous compression and other maneuvers. COMPARISON: No relevant prior imaging study available. FINDINGS: Right Common femoral vein: Negative. Right Superficial femoral vein: Negative. Right Popliteal vein: Negative. Right Calf veins: Negative. Left Common femoral vein: Negative. Left Superficial femoral vein: Negative. Left Popliteal vein: Negative. Left Calf veins: Negative. Additional findings: There is moderate diffuse nonspecific subcutaneous edema in both lower extremities.. IMPRESSION: No sonographic evidence for DVT in either lower extremity. - Medical Decision Making Clinically patient has reproducible anterior chest wall tenderness on the right side of her chest. No signs of acute liver, renal, or heart failure at this time to explain edema. Bilateral Dopplers for DVT negative. VQ scan low probability for pulmonary embolism without signs of hypoxia. Patient be discharged with medications for reproducible musculoskeletal chest wall pain. Heart score is less than with unchanged EKG compared to previous, unchanged repeat EKG in the ED, and 3 negative troponins during ED stay. Patient then admits that recently she's been sleeping on a mattress on the floor because of sleeping pill causes her to fall out of bed. She has been using her right hand/arm to pull herself up out of the bed and off of the mattress on the floor. This is likely the cause of her right chest wall pain/strain. - Differential Diagnosis costochondritis, pulmonary embolism, IA, atypical chest pain, heart failure Critical Care Time: No Critical care attestation.: If time is entered above; I have spent that time in minutes in the direct care of this critically ill patient, excluding procedure time. ED Disposition Clinical Impression: Chest wall tenderness, Edema Disposition: TO HOME OR SELFCARE Is pt being admited?: No Does the pt Need Aspirin: No Condition: Fair Instructions: Leg Edema (ED), Thoracic Pain (ED) Additional Instructions: Take your medications as prescribed. Follow-up with your doctor or the clinic/doctor provided. Return if symptoms worsen. Prescriptions: HYDROcodone/APAP 5-325 [[place] 5/325] 1 each PO Q6HR PRN #12 tablet PRN Reason: Pain Referrals: PRIMARY CAREMD [Primary Care Provider] - 3-5 Days LOS PETERSON MD [Staff Physician] - 3-5 Days (cardiology) Time of Disposition: 12:23
--- NOTE | 2019-06-01 08:53 | Vascular Lab Report ---
DUPLEX DOPPLER LOWER EXTREMITY VEINS, BILATERAL INDICATION: Bilateral lower extremity edema. TECHNIQUE: Duplex doppler imaging was performed through the veins of both lower extremities using ve nous compression and other maneuvers. COMPARISON: No relevant prior imaging study available. FINDINGS: Right Common femoral vein: Negative. Right Superficial femoral vein: Negative. Right Popliteal vein: Negative. Right Calf veins: Negative. Left Common femoral vein: Negative. Left Superficial femoral vein: Negative. Left Popliteal vein: Negative. Left Calf veins: Negative. Additional findings: There is moderate diffuse nonspecific subcutaneous edema in both lower extremiti es.. IMPRESSION: No sonographic evidence for DVT in either lower extremity. Signer Name: Rigo Clayton Jr, MD Signed: 06/01/2019 8:49 AM Workstation Name: [id number]
--- NOTE | 2019-06-01 10:48 | Nuclear Medicine Report ---
VENTILATION PERFUSION PULMONARY SCINTIGRAPHY HISTORY: Chest pain, shortness of breath COMPARISON: 06/01/2019 chest radiograph. TECHNIQUE: Radiopharmaceutical was inhaled. Tc-99m-MAA was then injected. Ventilation and perfusion images were acquired. RADIOPHARMACEUTICAL: 18.6 mCi of Xe-133 inhaled 5.3 mCi of Tc-99m-MAA injected FINDINGS: VENTILATION: No significant air trapping or defect. PERFUSION: No significant segmental or non-segmental defect. Additional Findings: None. IMPRESSION: 1. Low probability for pulmonary embolism. Signer Name: Rigo Clayton Jr, MD Signed: 06/01/2019 10:44 AM Workstation Name: [id number]
[2019-06-01 11:29] VITALS: BP 179/87
== END 2019-06-01 13:22 | disposition home or self-care (01) ==
LOC: ED 03:46
DX: R07.89 Other chest pain (principal); R60.9 Edema, unspecified; I10 Essential (primary) hypertension; Z86.73 Personal history of transient ischemic attack (TIA), and cerebral infarction without residual deficits; E11.9 Type 2 diabetes mellitus without complications; F17.200 Nicotine dependence, unspecified, uncomplicated; J45.909 Unspecified asthma, uncomplicated; Z98.890 Other specified postprocedural states; Z79.82 Long term (current) use of aspirin; Z79.899 Other long term (current) drug therapy; Z79.4 Long term (current) use of insulin; Z88.1 Allergy status to other antibiotic agents; Z91.040 Latex allergy status
CPT/HCPCS: 36415; 71045; 78582; 80048; 80076; 83880; 84484; 85025; 85379; 93005; 93010; 93970; 99285; A9540; A9558

== ENCOUNTER 2019-08-03 18:30 | Emergency (ER) | payer MEDICARE, OTHER ==
--- NOTE | 2019-08-03 19:39 | Event Note ---
ED Screening Note Date of service: 08/03/19 Time: 19:35 ED Screening Note: This is a 58 y.o. F. that presents to the ER with bilateral hands and feet swelling for several weeks. States PCP gave her medication to improve swelling. She is taking lasix and potassium daily and reports worsening symptoms. Denies chest pain, sob, palpitations, weakness, or bruising. PMH of DM, HLD, HTN, and TIA This initial assessment/diagnostic orders/clinical plan/treatment(s) is/are subject to change based on patients health status, clinical progression and re- assessment by fellow clinical providers in the ED. Further treatment and workup at subsequent clinical providers discretion. Patient/guardian urged not to elope from the ED as their condition may be serious if not clinically assessed and managed. Initial orders include: Labs and CXR
[2019-08-03 20:22] LABS: Basophils # (Auto) 0.2 K/mm3 (0.0-0.1); Eosinophils # (Auto) 0.3 K/mm3 (0.0-0.4); Eosinophils % (Auto) 3.3 % (0.0-4.3); Hematocrit 34.2 % (30.3-42.9); Hemoglobin 11.1 gm/dl (10.1-14.3); Lymphocytes # (Auto) 2.2 K/mm3 (1.2-5.4); Lymphocytes % (Auto) 28.5 % (13.4-35.0); Mean Corpuscular HGB Conc 32 % (30-34); Mean Corpuscular Volume 83 fl (79-97); Monocytes # (Auto) 0.7 K/mm3 (0.0-0.8); Monocytes % (Auto) 8.7 % (0.0-7.3); Platelet Count 325 K/mm3 (140-440); Red Blood Count 4.14 M/mm3 (3.65-5.03); Red Cell Distribution Width 16.3 % (13.2-15.2)
[2019-08-03 20:37] LABS: Alanine Aminotransferase 14 units/L (7-56); Albumin 3.6 g/dL (3.9-5); BUN/Creatinine Ratio 24; Blood Urea Nitrogen 22 mg/dL (7-17); Calcium 9.6 mg/dL (8.4-10.2); Hemolysis Index 12
--- NOTE | 2019-08-03 21:04 | XRay Report ---
CHEST 2 VIEWS INDICATION: edema. COMPARISON: 06/01/2019 FINDINGS: Support devices: None. Heart: Stable mild cardiomegaly. Lungs/pleura: No acute air space or interstitial disease. No pneumothorax. Additional findings: None. IMPRESSION: 1. No acute findings. Signer Name: Markos Condon MD Signed: 08/03/2019 8:59 PM Workstation Name: [id number]
[2019-08-03 22:02] VITALS: BP 174/84
--- NOTE | 2019-08-03 22:16 | Emergency Department Report ---
HPI - General Chief Complaint: Extremity Problem,Nontraumatic Time Seen by Provider: 08/03/19 19:34 - HPI HPI: 58-year-old Jessie female presents to the emergency department with complaint of swelling of the hands and legs and feet. The patient saw her PCP, Dr. Corey Lee, a few weeks ago and was placed on some Lasix without any relief. She then followed up again and then was placed on torsemide. Despite having increased urinary output, she does not feel that the swelling has gone down. She denies any shortness of breath, chest pain, back pain. She has a past medical history of hypertension, insulin-dependent diabetes, asthma, ne uropathy, hyperlipidemia. She denies any history of CHF. No recent travel or sick contacts at home. She denies any skin color change, rash or lesions. ED Past Medical Hx - Past Medical History Previous Medical History?: Yes Hx Hypertension: Yes Hx CVA: Yes Hx Diabetes: Yes Hx Asthma: Yes Additional medical history: Glaucoma, Neuropathy, elevated cholesterol - Surgical History Past Surgical History?: Yes Additional Surgical History: bilateral eye surgery - Social History Smoking Status: Never Smoker Substance Use Type: None - Medications Home Medications: Home Medications Medication Instructions Recorded Confirmed Last Taken Type Aspirin [Aspirin BABY CHEW TAB] 81 mg PO QDAY #30 tab.chew 10/07/18 Unknown Rx AtorvaSTATin [Lipitor] 40 mg PO QHS #30 tablet 10/07/18 Unknown Rx Insulin NPH/Regular [NovoLIN 70/30] 45 unit SUB-Q BIDDIAB 30 Days 10/07/18 Unknown Rx units Metoprolol [Lopressor TAB] 12.5 mg PO BID #60 tablet 10/07/18 Unknown Rx amLODIPine 10 mg PO QDAY #30 tablet 10/07/18 Unknown Rx hydrALAZINE [Apresoline TAB] 50 mg PO Q8HR #90 tablet 10/07/18 Unknown Rx HYDROcodone/APAP 5-325 [[place] 1 each PO Q6HR PRN #12 tablet 06/01/19 Unknown Rx 5/325] ED Review of Systems ROS: Stated complaint: SWOLLEN HANDS/FEET Other details as noted in HPI Comment: All other systems reviewed and negative Constitutional: denies: chills, fever Eyes: denies: eye pain, vision change ENT: denies: ear pain, throat pain Respiratory: denies: cough, shortness of breath Cardiovascular: edema. denies: chest pain Gastrointestinal: denies: abdominal pain, vomiting Genitourinary: denies: dysuria, discharge Musculoskeletal: denies: back pain, arthralgia Skin: denies: rash, lesions Neurological: denies: headache, weakness Physical Exam - Physical Exam Vital Signs: Vital Signs 08/03/19 08/03/19 19:38 22:00 Temperature 98.1 F 98.3 F Pulse Rate 91 H 89 Respiratory 18 16 Rate Blood Pressure 177/87 Blood Pressure 174/84 [Left] O2 Sat by Pulse 99 100 Oximetry Physical Exam: GENERAL: The patient is well-developed well-nourished. HENT: Normocephalic. Atraumatic. Patient has moist mucous membranes. EYES: Extraocular motions are intact. NECK: Supple. Trachea is midline. CHEST/LUNGS: Clear to auscultation. There is no respiratory distress noted. HEART/CARDIOVASCULAR: Regular. There is no tachycardia. There is no murmur. ABDOMEN: Abdomen is soft, nontender. Patient has normal bowel sounds. Obese habitus. SKIN: Skin is warm and dry. 1-2+ pitting edema to the bilateral lower extremities. There is some mild nonpitting swelling to the bilateral hands. No erythema, warmth, fluctuance. NEURO: The patient is awake, alert, and oriented. The patient is cooperative. The patient has no focal neurologic deficits. Normal speech. MUSCULOSKELETAL: There is no tenderness or deformity. There is no evidence of acute injury. ED Course Vital Signs 08/03/19 08/03/19 19:38 22:00 Temperature 98.1 F 98.3 F Pulse Rate 91 H 89 Respiratory 18 16 Rate Blood Pressure 177/87 Blood Pressure 174/84 [Left] O2 Sat by Pulse 99 100 Oximetry ED Medical Decision Making - Lab Data Result diagrams: 08/03/19 20:01 08/03/19 20:01 - Radiology Data Radiology results: image reviewed interpreted by me: Chest x-ray does not show any acute process. There are no pleural effusions, obvious pneumonia and there is no pneumothorax. - Medical Decision Making This patient presents to the emergency department with the complaint of some swelling of the bilateral hands and feet. She denies any chest pain, shortness of breath. She is on a been on Lasix followed by a course of torsemide. Chest x-ray does not show any pleural effusions or any other acute process. Patient's labs show a BNP of about 400. She has a blood sugar of about 320 but no significant elevation in the anion gap. Since the BNP is less than 500, it appears low suspicion for CHF. The patient denies any chest pain or shortness of breath. Her vital signs of been stable throughout her ED course. The patient appears safe for discharge home at this time. She has good follow-up with a primary care physician, Dr. Corey Lee. We discussed elevating her legs and using compression stockings. She will continue with the torsemide. She will go home and take her nighttime insulin and blood pressure medications. She will return to the ER with any worsening of her symptoms or any acute distress. - Differential Diagnosis CHF, venous stasis, Lupus Critical Care Time: No Critical care attestation.: If time is entered above; I have spent that time in minutes in the direct care of this critically ill patient, excluding procedure time. ED Disposition Clinical Impression: Hyperglycemia, Lower extremity edema, Bilateral hand swelling Hypertension Qualifiers: Hypertension type: essential hypertension Qualified Code(s): I10 - Essential (primary) hypertension Disposition: DC-01 TO HOME OR SELFCARE Is pt being admited?: No Condition: Stable Instructions: Leg Edema (ED), Hypertension (ED), Diabetic Hyperglycemia (ED) Additional Instructions: Please follow-up with your primary care physician in the next few days. When you are at home resting, I recommend elevating your legs on top of a few pillows to try and get some of the swelling out. You can use compression stockings while you are walking around. Continue taking your blood pressure medications. Try and stay away from foods that are high in salt and caffeinated products. Keep a blood pressure log. Continue with your insulin and metformin. Try and stay away from foods that are high in sugar, carbohydrates and starches. Keep a blood sugar log. Return to the emergency Department with any worsening of your symptoms or any acute distress. Referrals: COREY LEE MD [Referring] - 2-3 Days Time of Disposition: 22:16
== END 2019-08-03 22:40 | disposition home or self-care (01) ==
LOC: ED 18:30
DX: E11.65 Type 2 diabetes mellitus with hyperglycemia (principal); R60.0 Localized edema; I10 Essential (primary) hypertension; H40.9 Unspecified glaucoma; E78.00 Pure hypercholesterolemia, unspecified; J45.909 Unspecified asthma, uncomplicated; Z86.73 Personal history of transient ischemic attack (TIA), and cerebral infarction without residual deficits; Z98.890 Other specified postprocedural states; Z79.899 Other long term (current) drug therapy; Z91.040 Latex allergy status; Z88.1 Allergy status to other antibiotic agents
CPT/HCPCS: 36415; 71046; 80053; 83880; 85025